=== PATIENT | male | born 1940 | race Caucasian/White ===

== ENCOUNTER 2018-09-06 15:07 | Inpatient (IN) | payer MEDICARE ==
[~2018-09-06] VITALS: Ht 175.3 cm; Wt 98.0 kg
--- NOTE | 2018-09-06 15:28 | PHYS DOC ---
Past History Past Medical History: Diabetes, Hypertension Additional Past Medical Histor: chronic pain Adult General Chief Complaint Chief Complaint: ALTERED MENTAL STATUS HPI HPI Patient is a 77 year old male who brought in by EMS because of altered level of consciousness. Patient stated she saw him around 1300 before she left home before going to the doctor appointment and when she returned home found him leaning on his chair with altered level of consciousness and called 911. EMS reported patient was arousable but lethargic with GCS of 14. Patient had a flu shot yesterday. Review of Systems Review of Systems Unable to call pain review of systems because of medical condition and She Physical Exam Physical Exam Constitutional: Well nourished, mild distress, non-toxic appearance somnolent, febrile with temperature of 10 2] HENT: Normocephalic, atraumatic, oropharynx dry, no oral exudates, nose normal. [] Eyes: PERRLA, EOMI, conjunctiva normal, no discharge. [] Neck: Normal range of motion, no tenderness, supple, no stridor. [] Cardiovascular:Heart rate regular rhythm, no murmur [] Lungs & Thorax: Bilateral breath sounds clear to auscultation [] Abdomen: Bowel sounds normal, soft, no tenderness, no masses, no pulsatile masses. [] Skin: Warm, dry, no erythema, no rash. [] Back: No tenderness, no CVA tenderness. [] Extremities: No tenderness, no cyanosis, no clubbing, ROM intact, no edema. [] Neurologic: Alert and oriented X 1, patient has chronic shoulder surgery and pain and hesitates to move his extremities, unable to get NIH because of lethargic and not following the commands, speech is normal Psychologic: Unable to evaluate EKG EKG EKG Rated by me. EKG at 1528 showed normal sinus rhythm at rate of 82, prolonged GA interval at 256, abnormal right axis deviation, right bundle branch block, nonspecific ST and T-wave abnormalities, no acute ST and T-wave abnormalities. Radiology/Procedures Radiology/Procedures [address] [address] IMAGING REPORT Signed PATIENT: TERRY PERES ACCOUNT: [id number] : 1940 LOCATION: ER AGE: 77 SEX: M EXAM STATUS: REG ER ORD. PHYSICIAN: MARYA MACE MD REASON: ALOC PROCEDURE: CT CODE STROKE HEAD WO CT CODE STROKE HEAD WO History: Found unresponsive, vomiting, loss of control of bowel in urine, altered level of consciousness Comparison: None. Technique: Noncontrast CT imaging was performed of the head. Exposure: One or more of the following individualized dose reduction techniques were utilized for this examination: 1. Automated exposure control 2. Adjustment of the mA and/or kV according to patient size 3. Use of iterative reconstruction technique. Findings: There is some motion degradation. No convincing acute intracranial hemorrhage is identified. There is a focus of relative lower density of the left occipital lobe. There is mild third and lateral ventriculomegaly although component of mild supratentorial involutional change. There is some calcification along the tentorium and falx. There is no significant midline shift. Visualized paranasal sinuses and mastoid air cells are aerated. Impression: 1. No convincing acute intracranial hemorrhage is identified allowing for motion degradation. There is a focus of relative lower density of the left occipital lobe difficult to characterize although focus of more recent subacute ischemia a consideration, more accurately characterized by MRI. FOR INTERNAL CODING PURPOSES Critical result: Findings discussed with MARYA MACE at 09/06/2018 3:32 PM. RESULT CODE: (C) [address] [address] IMAGING REPORT Signed PATIENT: TERRY PERES ACCOUNT: [id number] : 1940 LOCATION: ER AGE: 77 SEX: M EXAM STATUS: REG ER ORD. PHYSICIAN: MARYA MACE MD REASON: ALOC PROCEDURE: PORTABLE CHEST 1V PORTABLE CHEST 1V History: Altered level of consciousness Comparison: None. Findings: Single view of the chest is submitted. There are low lung volumes, suboptimal inspiration. There has been a median sternotomy. There is a tortuous, possibly ectatic thoracic aorta. Cardiac silhouette is within normal limits given technique and poor inspiration. There is no pneumothorax, significant pleural fluid, lobar infiltrate. Impression: 1. No convincing acute radiographic abnormality is identified, suboptimal inspiration. Electronically signed by: Johan Miller MD (09/06/2018 4:17 PM) [facility] DICTATED AND SIGNED BY: JOHAN MILLER MD DATE: 09/06/181616 CC: MARYA MACE MD; DIMITRI DEL CID ~ Course & Med Decision Making Course & Med Decision Making Pertinent Labs and Imaging studies reviewed. (See chart for details) evaluation of patient in ER showed 77-year-old male patient brought in by EMS for altered level of consciousness with code stroke activation. CT of head did not show acute bleeding at was concern for possible subacute ischemic changes but patient had a fever of 102 and history of recent flu shot concern of altered level of consciousness related to too much pain medication and fever. Patient did not have leukocytosis or hypotension or tachycardia. Patient was somnolent and treated with IV fluid and antibiotic. Dr. Solorzano accepted admission at 1603. Dragon Disclaimer Dragon Disclaimer This electronic medical record was generated, in whole or in part, using a voice recognition dictation system. Departure Departure: Impression: Primary Impression: Altered level of consciousness Additional Impressions: Fever Renal insufficiency Uncontrolled diabetes mellitus Disposition: 09 ADMITTED INPATIENT (at 1604) Admitting Physician: Telly Solorzano (accepted admission at 1603) Condition: GUARDED Critical Care Time Critical care time was 60 minutes exclusive of procedures. Problem Qualifiers MARYA MACE MD Sep 06, 2018 15:28
[2018-09-06] MEDS ORDERED: IV NORMAL SALINE 1,000ML 1,000 ML IV ONE (15:30)
[2018-09-06] MEDS ORDERED: NALOXONE 0.4 MG/ML VIAL. IV ONE (15:30)
--- NOTE | 2018-09-06 15:31 | EKG ---
[address] [address] Test Date: 2018-09-06 Test Time: 15:28:32 Pat Name: TERRY PERES Department: Room: Gender: M Dean Of Instruction: : 1940 Requested By: MARYA MACE Order Number: [id number] Reading MD: Momo Bowling MD Measurements Intervals [place] Rate: 82 P: 54 NV: 256 QRS: 137 QRSD: 142 T: 35 QT: 376 QTc: 442 Interpretive Statements SINUS RHYTHM PROLONGED NV INTERVAL RBBB NON-SPECIFIC ST/T CHANGES Electronically Signed On 09-08-2018 9:24:55 SCREEDMAN/LABORER by Momo Bowling MD
--- NOTE | 2018-09-06 15:37 | RAD ---
CT CODE STROKE HEAD WO History: Found unresponsive, vomiting, loss of control of bowel in urine, altered level of consciousness Comparison: None. Technique: Noncontrast CT imaging was performed of the head. Exposure: One or more of the following individualized dose reduction techniques were utilized for this examination: 1. Automated exposure control 2. Adjustment of the mA and/or kV according to patient size 3. Use of iterative reconstruction technique. Findings: There is some motion degradation. No convincing acute intracranial hemorrhage is identified. There is a focus of relative lower density of the left occipital lobe. There is mild third and lateral ventriculomegaly although component of mild supratentorial involutional change. There is some calcification along the tentorium and falx. There is no significant midline shift. Visualized paranasal sinuses and mastoid air cells are aerated. Impression: 1. No convincing acute intracranial hemorrhage is identified allowing for motion degradation. There is a focus of relative lower density of the left occipital lobe difficult to characterize although focus of more recent subacute ischemia a consideration, more accurately characterized by MRI. FOR INTERNAL CODING PURPOSES Critical result: Findings discussed with MARYA MACE at 09/06/2018 3:32 PM. RESULT CODE: (C) . Electronically signed by: Sea Miller MD (09/06/2018 3:34 PM) [facility]
[2018-09-06] MEDS ORDERED: ACETAMINOPHEN 500 MG TABLET PO ONE (15:45)
[2018-09-06 15:48] LABS: BASO # 0.1 x10^3/uL (0.0-0.2); BASO % 1 % (0-3); EOS % 0 % (0-3); HEMATOCRIT 44.2 % (39.0-53.0); HEMOGLOBIN 14.9 g/dL (13.0-17.5); LYMPH # 0.3 x10^3/uL (1.0-4.8); LYMPH % 4 % (24-48); MEAN CORPUSCULAR HEMOGLOBIN 32 pg (25-35); MEAN CORPUSCULAR HGB CONC 34 g/dL (31-37); MEAN CORPUSCULAR VOLUME 95 fL (79-100); MONO # 0.5 x10^3/uL (0.0-1.1); MONO % 6 % (0-9); NEUT # 8.1 x10^3uL (1.8-7.7); NEUT % 90 % (31-73); PLATELET COUNT 138 x10^3/uL (140-400); RED BLOOD COUNT 4.67 x10^6/uL (4.30-5.70)
[2018-09-06 15:56] LABS: CLARITY,URINE CLEAR; COLOR,URINE YELLOW; GLUCOSE,URINE 250 mg/dL (NEG)
[2018-09-06 15:57] LABS: BACTERIA,URINE 0 /HPF (0-FEW); BILIRUBIN,URINE NEG (NEG); NITRITE,URINE NEG (NEG); SQUAMOUS EPITHELIAL CELL,UR OCC /LPF; UROBILINOGEN,URINE 0.2 mg/dL (0.2 mg/dL); WBC,URINE RARE /HPF (0-4)
[2018-09-06 16:04] LABS: ALBUMIN 3.7 g/dL (3.4-5.0); CALCIUM 9.2 mg/dL (8.5-10.1); CREATININE 1.5 mg/dL (0.7-1.3); GFR 45.5; POTASSIUM 3.9 mmol/L (3.5-5.1); TOTAL BILIRUBIN 0.5 mg/dL (0.2-1.0); TOTAL PROTEIN 7.3 g/dL (6.4-8.2)
[2018-09-06 16:06] LABS: INFLUENZA A PATIENT NEGATIVE (NEGATIVE); INFLUENZA B PATIENT NEGATIVE (NEGATIVE)
[2018-09-06] MEDS ORDERED: IV NORMAL SALINE 50ML 50 ML ONE (16:07)
[2018-09-06] MEDS ORDERED: cefTRIAXone SODIUM 1 GM VIAL IV ONE (16:07)
--- NOTE | 2018-09-06 16:21 | RAD ---
PORTABLE CHEST 1V History: Altered level of consciousness Comparison: None. Findings: Single view of the chest is submitted. There are low lung volumes, suboptimal inspiration. There has been a median sternotomy. There is a tortuous, possibly ectatic thoracic aorta. Cardiac silhouette is within normal limits given technique and poor inspiration. There is no pneumothorax, significant pleural fluid, lobar infiltrate. Impression: 1. No convincing acute radiographic abnormality is identified, suboptimal inspiration. Electronically signed by: Sea Miller MD (09/06/2018 4:17 PM) [facility]
[2018-09-06] MEDS ORDERED: AZITHROMYCIN 500 MG in IV NORMAL SALINE 250ML 250 ML IV ONE (18:30)
[2018-09-06] MEDS ORDERED: DEXTROSE 50% 25 GM / 50ML DISP.SYRIN. IV PRN (18:30)
[2018-09-06] MEDS ORDERED: SIMV40TA3 PO (18:37)
[2018-09-06] MEDS ORDERED: OXYC1TAB22 PO (18:37)
[2018-09-06] MEDS ORDERED: LOSA25TA11 PO (18:37)
[2018-09-06] MEDS ORDERED: LEVO175T5 PO (18:37)
[2018-09-06] MEDS ORDERED: FURO40TA4 PO (18:37)
[2018-09-06] MEDS ORDERED: METO50TA29 PO (18:37)
[2018-09-06] MEDS ORDERED: MORP60TA PO (18:40)
[2018-09-06] MEDS ORDERED: CELE200C PO (18:40)
[2018-09-06] MEDS ORDERED: DUTA0.5C PO (18:40)
[2018-09-06 18:42] VITALS: BP 143/78
[2018-09-06 19:45] VITALS: BP 135/75
[2018-09-06] MEDS: IV NORMAL SALINE 1,000ML 1,000 ML IV SCH (19:46)
[2018-09-06] MEDS: oxyCODONE/APAP 10/325 1 TAB TABLET PO SCH (20:58)
[2018-09-06] MEDS: MORPHINE ER 30 MG TABLET.ER PO SCH (20:58)
[2018-09-06] MEDS: LACTOBACILLUS RHAMNOSUS GG 1 CAPSULE. PO SCH (20:58)
[2018-09-06 23:33] VITALS: BP 118/70
[2018-09-07] MEDS ORDERED: ONDANSETRON ODT 4 MG TAB.RAPDIS PO PRN (03:30)
[2018-09-07] MEDS ORDERED: oxyCODONE/APAP 10/325 1 TAB TABLET PO ONE (04:00)
[2018-09-07] MEDS: IV NORMAL SALINE 1,000ML 1,000 ML IV SCH ×4 (04:16→20:18)
[2018-09-07 05:00] VITALS: BP 159/77
[2018-09-07] MEDS ORDERED: ONDANSETRON PF 4 MG/2 ML VIAL. IV PRN (05:00)
[2018-09-07] MEDS: METOCLOPRAMIDE HCL 10 MG/2 ML VIAL. IV SCH ×4 (05:18→20:17)
[2018-09-07 06:35] LABS: BASO % 0 % (0-3); EOS % 0 % (0-3); HEMATOCRIT 40.1 % (39.0-53.0); HEMOGLOBIN 13.6 g/dL (13.0-17.5); LYMPH # 0.7 x10^3/uL (1.0-4.8); LYMPH % 5 % (24-48); MEAN CORPUSCULAR HEMOGLOBIN 32 pg (25-35); MEAN CORPUSCULAR HGB CONC 34 g/dL (31-37); MEAN CORPUSCULAR VOLUME 94 fL (79-100); MONO # 1.4 x10^3/uL (0.0-1.1); MONO % 9 % (0-9); NEUT # 13.5 x10^3uL (1.8-7.7); NEUT % 87 % (31-73); PLATELET COUNT 132 x10^3/uL (140-400); RED BLOOD COUNT 4.27 x10^6/uL (4.30-5.70); RED CELL DISTRIBUTION WIDTH 15.2 % (11.5-14.5); WHITE BLOOD COUNT 15.6 x10^3/uL (4.0-11.0)
[2018-09-07 06:48] LABS: ALBUMIN 2.8 g/dL (3.4-5.0); ALBUMIN/GLOBULIN RATIO 0.8 (1.0-1.7); CALCIUM 8.5 mg/dL (8.5-10.1); CREATININE 1.3 mg/dL (0.7-1.3); GFR 53.7; POTASSIUM 3.5 mmol/L (3.5-5.1); TOTAL BILIRUBIN 0.6 mg/dL (0.2-1.0); TOTAL PROTEIN 6.1 g/dL (6.4-8.2)
[2018-09-07 06:49] LABS: LACTATE DEHYDROGENASE 175 U/L (85-227); LIPASE 91 U/L (73-393)
[2018-09-07 07:38] LABS: % BANDS 12 % (0-9); % LYMPHS 3 % (24-48); % MONOS 6 % (0-10); % SEGS 76 % (35-66)
[2018-09-07 07:40] LABS: PLT ESTIMATE DECREASED (ADEQUATE); SMUDGE CELLS PRESENT; TOXIC GRANULATION PRESENT
[2018-09-07] MEDS: LEVOTHYROXINE 175 MCG TABLET PO SCH (07:47)
[2018-09-07] MEDS: METOPROLOL SUCC 24HR ER 50 MG TAB.ER.24H. PO SCH (08:59)
[2018-09-07] MEDS: SIMVASTATIN 40 MG TABLET. PO SCH (08:59)
[2018-09-07] MEDS: DUTASTERIDE 0.5 MG CAPSULE PO SCH (08:59)
[2018-09-07] MEDS: oxyCODONE/APAP 10/325 1 TAB TABLET PO SCH ×4 (08:59→20:18)
[2018-09-07] MEDS: LACTOBACILLUS RHAMNOSUS GG 1 CAPSULE. PO SCH ×2 (08:59→20:17)
[2018-09-07] MEDS: MORPHINE ER 30 MG TABLET.ER PO SCH ×2 (09:00→20:17)
[2018-09-07] MEDS: INSULIN LISPRO 300 UNITS/3 ML INSULN.PEN. SQ SCH ×3 (09:07→16:56)
[2018-09-07 11:09] VITALS: BP 159/69
[2018-09-07] MEDS ORDERED: ACETAMINOPHEN 325 MG TABLET PO PRN (14:15)
[2018-09-07] MEDS ORDERED: ACETAMINOPHEN 650 MG SUPP.RECT. PR PRN (14:15)
--- NOTE | 2018-09-07 15:04 | HP ---
ADMIT DATE: 09/06/2018 HISTORY OF PRESENT ILLNESS: The patient is a 77-year-old male patient who was brought to the Emergency Room by the emergency medical service personnel because of altered mental level of consciousness. His stated that he saw him around 1:00 before she left the home before going to the doctor's appointment when he returned home, she found him leaning on the chair with altered level of consciousness. She called 911. Emergency medical service reported the patient was arousable, but lethargic; however, his glaucoma scale was 14. He did just receive his flu shot the day before admission. He was evaluated in the Emergency Room extensively and he was found to be febrile. His temperature was on arrival was actually 102.6, however, chest x-ray was unremarkable. Urinalysis unremarkable. He has bilateral lower extremity cellulitis and he has left foot diabetic foot ulcer with Charcot joint. He was admitted with altered mental status, febrile illness. The source of infection was not clear. He was also somewhat dehydrated, so we will start him on IV fluid. His blood sugar was slightly elevated, but he was not hypoglycemic and his blood was sent for culture and sensitivity. His CT scan of the head was unremarkable and showed no convincing acute intracranial hemorrhage identified allowing for motor degradation. PAST MEDICAL HISTORY: Significant for benign prostatic hypertrophy, hypothyroidism, hypogonadism, neurofibromatosis, type 2 diabetes, chronic fatigue syndrome, neck pain, lumbago, depression, chronic pain, chronic renal insufficiency, erectile dysfunction and nocturia. PAST SURGICAL HISTORY: Significant for thoracic aortic aneurysm repair. He has also shoulder surgery and hand surgery. FAMILY HISTORY: Both parents are . SOCIAL HISTORY: He is , lives with his . He has 1 son who was in the law enforcement agency at another state. He apparently does not smoke, drink alcohol or use any recreational drugs. ALLERGIES: HE IS ALLERGIC TO PENICILLIN. MEDICATIONS: He is currently on following medications: He is on simvastatin 40 mg at bedtime daily at bedtime, metoprolol succinate 50 mg once a day, losartan potassium 25 mg once a day, Celebrex 200 mg twice a day, morphine sulfate 60 mg extended release twice a day, oxycodone/APAP 10/325 one tablet 4 times a day. He is on furosemide 40 mg once a day, levothyroxine sodium 175 mcg once a day and (Dutasteride) Avodart 0.5 mg at bedtime. REVIEW OF SYSTEMS: The patient was very angry and did not really answer any of my questions when I saw him the first time. PHYSICAL EXAMINATION: GENERAL: On examining him, on arrival to the Emergency Room, he looked somewhat pale, but no jaundice or cyanosis. No lymphadenopathy, no thyromegaly. No jugular venous distention. No limb edema. VITAL SIGNS: His heart rate was 87, blood pressure was 169/73, temperature was 102.6, respiratory rate was 20, and oxygen saturation was 96% on room air. HEAD, EYES, EARS, NOSE AND THROAT: Showed normocephalic, atraumatic. NECK: Supple. HEART: Showed normal first and second heart sounds. No gallop, rub or murmur. CHEST: Shows central trachea, equal bilateral chest expansion, air entry, vesicular sounds. No crepitation or rhonchi. ABDOMEN: Slightly distended, soft, but this seems to be an incisional hernia in the epigastric area. There is no tenderness. No guarding or rigidity. No organomegaly. All hernial orifice intact. Bowel sounds normal. NEUROLOGIC: He was sleepy, but arousable. He opens his eyes, responds appropriately. He moves his upper extremities to a greater extent than his lower extremities. According to his , he is mostly bed bound. He has diabetic foot ulcer on the plantar aspect of the left foot with diabetic autonomic arthropathy and the ulcer is covered with dressing. There is erythema bilaterally, although the and sister saying that his legs are always swollen and red. He has a scar of harvesting the greater saphenous vein on the left side. LABORATORY DATA: His lab work on arrival showed that his serum sodium was 134, potassium 3.9, chloride 98, bicarbonate 26, anion gap of 10, BUN 29, creatinine 1.5, estimated GFR was 45 mL per minute. His glucose was 122, calcium was 9.2. Total bilirubin, AST, ALT, alkaline phosphatase were normal. Total protein was 7.3, albumin 3.7. His white cell count was 9000, hemoglobin 14.9, hematocrit 44, MCV 95, and platelet count of 138,000 with normal manual differential. His prothrombin time was 10.5, INR 1.1, aPTT was 38. Urinalysis showed the urine was yellow, clear with a pH of 5.5, specific gravity of 1.020. There was large amount of glucose, small amount of ketones, moderate amount of blood, negative for nitrite and leukocyte esterase with 6-10 rbc's, rare wbc's, and no bacteria. His influenza A and B were negative. His CT scan of the head showed that there is a focus of relative lower density on the left occipital lobe, difficult to characterize, although focus of more recent subacute ischemia, consideration, more accurately characterized by MRI. However, there is no convincing acute intracranial hemorrhage identified. His chest x-ray showed there are low lung volumes, suboptimal inspiration. There has been a median sternotomy. There is a tortuous, possibly ectatic thoracic aorta. Cardiac silhouette is within normal limits given technique and poor inspiration. There is no pneumothorax. Significant pleural effusion or lobar infiltrate. ASSESSMENT AND PLAN: The patient was admitted with fever and altered mental status, possible cellulitis. We sent blood for culture and sensitivity. Initially was started on IV Rocephin and Zithromax as well as IV fluid because he was very lethargic. We will continue with this IV antibiotics. Continue with IV fluid, await the culture result. I have consulted Dr. Mata to see him and I have contacted his primary care physician to hopefully get more information about him. ABDOULAYE ENRIQUEZ MD DR: MONIE/palmer JOB#: [id number] / [id number]
--- NOTE | 2018-09-07 16:43 | RAD ---
History: Diabetic foot ulcer and possible osteomyelitis. Comparison: None. Findings: AP, lateral, and oblique views of left foot. Osseous structures appear demineralized. There is suspected to be Charcot arthropathy with sclerosis and arthritic changes of the midfoot. The TMT joints are not well delineated. No convincing osteolysis to suggest radiographic evidence of osteomyelitis is identified, although radiographic evidence of such would be a late finding. 1st MTP degeneration is seen. Multiple small calcifications are seen in the posterior ankle, may relate to the Achilles tendon. Impression: 1. No radiographic evidence of osteomyelitis, although ultrasound evidence of such would be a relatively late finding. 2. Probable Charcot arthropathy. Electronically signed by: Rikki Dickinson MD (09/07/2018 4:40 PM) [facility] [address] [facility]
--- NOTE | 2018-09-07 16:53 | RAD ---
Indication:Recurrent bouts of nausea and vomiting. TECHNIQUE: Grayscale, color Doppler and spectral waveform is of the abdomen obtained. COMPARISON:None FINDINGS: Pancreas is not visualized due to overlying bowel gas. No evidence of proximal or mid aortic aneurysm. Distal aortic segment not visualized due to overlying bowel gas. Liver is mildly enlarged measuring 19 cm in length and is normal in echogenicity. IVC is patent. Main portal vein is patent with hepatopedal flow. CBD measures 6 mm in diameter and is within normal limits. No gallstones, pericholecystic fluid or gallbladder wall thickening. Right kidney measures 12.4 cm in length without hydronephrosis. There is a 3.6 x 3.9 cm complex appearing lesion in the upper pole of the right kidney without internal vascularity. The spleen measures 12 cm in longest dimension and is poorly visualized but is normal in size. Left kidney is poorly visualized but approximately measures 11.3 cm in length. There is a 4.3 x 4.6 x 4.5 cm simple appearing cyst in the left kidney. IMPRESSION: Limited exam due to large body habitus and overlying bowel gas. 1. Mild hepatomegaly with mild hepatic steatosis. 2. No cholelithiasis or sonographic evidence of acute cholecystitis. 3. Complex right upper pole renal lesion. Further evaluation with nonemergent MRI of the abdomen with IV contrast is recommended. . Electronically signed by: Ranjan Minor DO (09/07/2018 4:49 PM) [id number]
[2018-09-07 21:00] VITALS: BP 136/68
[2018-09-07] MEDS: MEROPENEM 500 MG in IV NORMAL SALINE 50ML 50 ML IV SCH (22:16)
[2018-09-08] VITALS (7 sets, daily range): BP systolic 143–173; BP diastolic 67–95
--- NOTE | 2018-09-08 00:18 | PN ---
DATE: 09/07/2018 SUBJECTIVE: The patient is resting, slightly propped up in bed, in no apparent distress. He is definitely more awake, alert, less combative and agitated. His main complaint has been recurrent bouts of nausea and vomiting. Denied any abdominal pain. Denied any chest pain, shortness of breath. He has not had eat breakfast and keeps any fluid in. He has large bowel movement according to the nursing staff. However, today he is afebrile. PHYSICAL EXAMINATION: GENERAL: When I examined him, he was somewhat pale, not jaundice, cyanosis, or thyromegaly. No jugular venous distension. Has bilateral lower limb edema. VITAL SIGNS: His heart rate was 73, blood pressure was 159/69, temperature was 98.5, respiratory rate was 20, and oxygen saturation was 95% on room air. HEAD, EYES, EARS, NOSE AND THROAT: Showed normocephalic, atraumatic. NECK: Supple. HEART: Showed normal first and second heart sounds. No gallop, rub or murmur. CHEST: Clear to auscultation. No crepitation or rhonchi. ABDOMEN: Distended, soft with a large incisional hernia in the epigastric area. There is no tenderness. No guarding or rigidity. No organomegaly. All hernial orifice intact. Bowel sounds normal. NEUROLOGIC: He is definitely more awake, alert, responding appropriately, less agitated, calmer, responding appropriately. All his cranial nerves are intact. He moves his upper extremities to much good extent than lower extremities. He has apparently neurofibromatosis with right hand that is extremely painful. 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 His intake over the last 24 hours was 2700 and output was 400. LABORATORY DATA: His lab work this morning showed that his white cell count is up to 15,600, hemoglobin 13.6, hematocrit 40, MCV 94 and platelet count of 132,000 with normal manual differential. His chemistry showed his serum sodium is 134, potassium 3.9, chloride 101, bicarbonate 24, anion gap of 12, BUN 25, creatinine 1.3, estimated GFR was 54 mL per minute. His glucose was 225, calcium was 8.5. Total bilirubin, AST, ALT were normal. Alkaline phosphatase was low. His lactate dehydrogenase was 175. Total protein 6.1, albumin was 2.8 and lipase was 91. Again, his chest x-ray was unremarkable. ASSESSMENT: Altered mental status, improving; fever, leukocytosis and bilateral lower extremity cellulitis as well as has possible diabetic foot ulcer with possible osteomyelitis. PLAN: My plan is to arrange for him to have abdominal ultrasound to look into his gallbladder, as he has persistent nausea, vomiting, although my inclination is that this is an opioid-induced nausea and vomiting. Cellulitis and possible osteomyelitis, which I would change her antibiotic to Zyvox and meropenem, as he is allergic to PENICILLIN. Continue with IV fluid for now. We will continue with a low dose sliding scale. Await the results of culture and sensitivity. I have arranged for him to have abdominal ultrasound as well as x-ray of the left foot. I will arrange also the CT scan of the abdomen if the ultrasound was uninformative and also bone scan to rule out the possibility of osteomyelitis of his left foot. ABDOULAYE ENRIQUEZ MD DR: MONIE/palmer JOB#: [id number] / [id number]
[2018-09-08] MEDS: IV NORMAL SALINE 1,000ML 1,000 ML IV SCH ×2 (05:21→17:01)
[2018-09-08] MEDS: MEROPENEM 500 MG in IV NORMAL SALINE 50ML 50 ML IV SCH ×3 (05:21→22:12)
[2018-09-08] MEDS: oxyCODONE/APAP 10/325 1 TAB TABLET PO SCH ×4 (05:22→21:01)
[2018-09-08] MEDS: LEVOTHYROXINE 175 MCG TABLET PO SCH (05:22)
[2018-09-08 05:56] LABS: BASO # 0.1 x10^3/uL (0.0-0.2); BASO % 0 % (0-3); EOS % 0 % (0-3); HEMOGLOBIN 12.7 g/dL (13.0-17.5); LYMPH # 1.1 x10^3/uL (1.0-4.8); LYMPH % 7 % (24-48); MEAN CORPUSCULAR HEMOGLOBIN 32 pg (25-35); MEAN CORPUSCULAR HGB CONC 33 g/dL (31-37); MEAN CORPUSCULAR VOLUME 97 fL (79-100); MONO # 1.7 x10^3/uL (0.0-1.1); MONO % 10 % (0-9); NEUT # 13.4 x10^3uL (1.8-7.7); NEUT % 82 % (31-73); PLATELET COUNT 114 x10^3/uL (140-400); RED BLOOD COUNT 4.03 x10^6/uL (4.30-5.70); WHITE BLOOD COUNT 16.2 x10^3/uL (4.0-11.0)
[2018-09-08 06:08] LABS: ALBUMIN 2.4 g/dL (3.4-5.0); ALBUMIN/GLOBULIN RATIO 0.7 (1.0-1.7); CALCIUM 7.8 mg/dL (8.5-10.1); CREATININE 1.5 mg/dL (0.7-1.3); GFR 45.5; POTASSIUM 3.8 mmol/L (3.5-5.1); TOTAL BILIRUBIN 0.6 mg/dL (0.2-1.0); TOTAL PROTEIN 5.8 g/dL (6.4-8.2)
--- NOTE | 2018-09-08 06:53 | PN ---
DATE: 09/07/2018 REFERRING PHYSICIAN: Telly Solorzano MD SUBJECTIVE: The patient is more awake this morning and he answers question correctly and he was cooperative. He complains of chronic pain syndrome and pain of the right hand. The patient told me many years ago he underwent extensive surgery to the right hand and forearm to schwannoma. Currently, he denies headaches, visual disturbances, nausea, vomiting, chest pain, shortness of breath or palpitation, dysarthria or dysphagia. OBJECTIVE: GENERAL: Well-developed, well-nourished male, not in acute distress. VITAL SIGNS: Blood pressure 159/77, respiratory rate 22, pulse is 78 and regular, temperature is 98, oxygen saturation 95% on room air. HEENT: Normocephalic, atraumatic, otherwise unremarkable. NECK: Supple, negative for carotid bruit, lymphadenopathy or thyromegaly. LUNGS: Clear to A and P. CARDIOVASCULAR: Regular rhythm, normal S1, S2. ABDOMEN: Soft. Bowel sounds positive. EXTREMITIES: Positive for swelling and cellulitis, more prominent on the left side. Also, he has deformity of the right hand secondary to previously extensive surgeries. NEUROLOGIC: The patient is awake, alert, and oriented. His speech is fluent. There is no language dysfunction. Speech, memory, judgment, and abstract thinking are fair. The patient denies hallucination or delusion. Cranial nerves are grossly intact. Motor Examination: No focal muscle bulk was seen. The strength was 4/5 throughout. Sensory examination revealed diminished pinprick and light touch senses in patchy distributions in both lower extremities. Deep tendon reflexes were symmetric and hypoactive with absent Achilles responses. Gait not tested. LABORATORY DATA: CBC revealed white blood cells of 15.6, hemoglobin 13.6, hematocrit 40.1, platelet count 133,000. Chemistry revealed sodium of 137, potassium 3.5, chloride 101, CO2 24, BUN 25, creatinine 1.3, glucose 223. CRP is very high at 229.9. Otherwise, liver enzymes are normal. Urinalysis from 09/06/2016 revealed no evidence of urinary tract infection. IMPRESSION: 1. Acute encephalopathy -- improved. 2. Febrile illnesses, rule out sepsis. 3. Multiple medical problems include diabetes mellitus type 2, chronic fatigue and pain syndrome, depressions, chronic low back pain and renal insufficiency. RECOMMENDATIONS: 1. Continue with current management initiated by Dr. Solorzano to rule out an infectious versus metabolic encephalopathy. 2. Treat the underlying cellulitis. 3. Physical therapy evaluation. M Taylor LOAIZA MD DR: SVETLANA/palmer JOB#: [id number] / [id number]
[2018-09-08 06:59] LABS: SEDIMENTATION RATE 37 (0-15)
--- NOTE | 2018-09-08 07:17 | CONS ---
DATE OF CONSULTATION: 09/06/2018 REFERRING PHYSICIAN: Dr. Solorzano. REASON FOR CONSULTATION: Acute mental status changes. HISTORY OF PRESENT ILLNESS: This is a 77-year-old right-handed male who was admitted through Emergency Room after he was found by his confused and disoriented. 911 was activated and transferred the patient to the Emergency Room. On arrival, the patient was found unresponsive to verbal commands with a temperature of 102.6. The coma scale was 14 according to ER physicians. Initial nonenhanced head CT scan revealed no evidence of acute intracranial process. The patient was admitted for further evaluation for possible systemic infections. PAST MEDICAL HISTORY: Significant for diabetes mellitus type 2, hypogonadism, hypothyroidism, benign prostatic hypertrophy, depression, chronic lower back pain, renal insufficiency and neck pain. PAST SURGICAL HISTORY: Positive for thoracic aortic aneurysm repair and extensive surgery for right hand and shoulder. When asked about the hand surgery, it was told the patient had a long history of schwannoma of the right hand which required extensive surgery. SOCIAL HISTORY: The patient is . He lives with his at home. He has 1 son. There is no history of smoking, alcohol drinking, or illicit drug use. ALLERGIES: PENICILLIN. REVIEW OF SYSTEMS: A 10-point review of system was performed and consistent with acute mental status changes as mentioned above in the history of present illness. CURRENT HOME MEDICATIONS: Simvastatin, metoprolol, losartan, potassium, Celebrex, morphine, oxycodone, furosemide, levothyroxine, and Avodart. PHYSICAL EXAMINATION: GENERAL: He weighs 217 pounds. VITAL SIGNS: Blood pressure 135/75, respiratory rate 20, pulse 76, temperature 99, oxygen saturation 95% on room air. HEENT: Normocephalic and atraumatic, otherwise unremarkable. NECK: Supple, negative for carotid bruit, lymphadenopathy or thyromegaly. LUNGS: Clear to A and P. CARDIOVASCULAR: Regular rate and rhythm. Normal S1, S2. No murmur. ABDOMEN: Soft. Bowel sounds positive. There is no mass, organomegaly or tenderness. EXTREMITIES: Positive for left foot ulcer along with erythema of the distal lower extremity with discoloration. There is marked deformity of the right hand secondary to previous surgeries. NEUROLOGIC: 1. Mental Status: The patient is markedly somnolent, unable to provide any information at this time. 2. Cranial Nerves: The pupils are equal and reactive to light. There is no facial motor deficit. Further evaluation is limited at this time. 3. Motor Examination: No focal muscle bulk was seen. The patient is drowsy and cannot communicate with manual muscle examination. 4. Sensory Examination: Revealed diminished pinprick and light touch senses throughout. Deep tendon reflexes were symmetric and hypoactive with absent Achilles responses. Gait could not be tested. LABORATORY DATA: CBC revealed white blood cells of 9000, hemoglobin 14.9, hematocrit 44.2, platelet count 138,000. Chemistry revealed sodium of 134, potassium 3.9, chloride 98, pCO2 of 26, BUN 29, creatinine 1.5 with GFR of 45 mL per minute, calcium 9.2, glucose of 122. Urinalysis, negative for urinary tract infection. Chest x-ray revealed no aspiration, otherwise unremarkable. IMPRESSION: 1. Acute encephalopathy, etiology is uncertain. However, the patient did receive flu shot one day before admission. The etiology of his mental status is uncertain, to rule out systemic infections as the patient has cellulitis of the lower extremities mostly on the left side. 2. Multiple medical problems to include diabetes mellitus, chronic pain syndrome, chronic back pain, depression, hypothyroidism, and hypogonadism. RECOMMENDATIONS: Continue with current management initiated by Dr. Solorzano including a workup for possible sepsis. M Taylor LOAIZA MD DR: SVETLANA/palmer JOB#: [id number] / [id number]
[2018-09-08] MEDS: DUTASTERIDE 0.5 MG CAPSULE PO SCH (09:43)
[2018-09-08] MEDS: MORPHINE ER 30 MG TABLET.ER PO SCH ×2 (09:43→21:00)
[2018-09-08] MEDS: LACTOBACILLUS RHAMNOSUS GG 1 CAPSULE. PO SCH ×2 (09:44→20:59)
[2018-09-08] MEDS: SIMVASTATIN 40 MG TABLET. PO SCH (09:44)
[2018-09-08] MEDS: METOCLOPRAMIDE HCL 10 MG/2 ML VIAL. IV SCH ×4 (09:44→21:01)
[2018-09-08] MEDS: METOPROLOL SUCC 24HR ER 50 MG TAB.ER.24H. PO SCH (09:44)
[2018-09-08] MEDS: INSULIN LISPRO 300 UNITS/3 ML INSULN.PEN. SQ SCH ×3 (09:49→17:07)
--- NOTE | 2018-09-08 10:37 | RAD ---
PQRS Compliance statement: One or more of the following individualized dose reduction techniques were utilized for this examination: 1. Automated exposure control. 2. Adjustment of the mA and/or kV according to patient size. 3. Use of iterative reconstruction technique. Indication:RECURRENT BOUTS OF nausea and vomiting TECHNIQUE: CT abdomen and pelvis without IV contrast with multiplanar reformats. COMPARISON: None FINDINGS: Motion artifact is seen limiting optimal evaluation. Limited evaluation of solid abdominal and pelvic organs due to lack of IV contrast. Heart is normal in size. No pericardial or effusion. Median sternotomy noted. Bibasilar atelectasis. Noncontrast appearance of the liver, spleen, gallbladder, pancreas, adrenals within normal limits. Multiple bilateral partially exophytic lesions are seen in the kidneys. Index lesions as follows: 4.4 x 4.1 cm lesion interpolar right kidney demonstrating fluid density most likely a simple cyst. Exophytic 1.3 x 0.9 cm soft tissue density lesion in the posterior aspect of the interpolar right kidney (series 2 image 27). 2.1 x 2.3 cm low attenuating lesion with eccentric focal wall calcifications. -3.4 x 2.6 cm low attenuating lesion in the medial aspect of the upper pole of the left kidney with thick eccentric wall (series 2 image 34) -Most likely a simple cyst in the inferior pole of the left kidney measuring 5.1 x 4.0 cm. No enlarged retroperitoneal or pelvic adenopathy. No free pelvic fluid or ascites. Moderate diffuse atherosclerotic calcifications are seen of the abdominal aorta. No bowel obstruction. Normal appendix. Large amount of stool is seen in the rectum. Anterior abdominal wall hernia is seen containing focal loop of small bowel with neck of the hernia measuring 3 cm. Prostate is enlarged measuring 6.0 x 4.5 cm. Urinary bladder demonstrates no radiopaque stones. Prominent and mildly enlarged bilateral inguinal lymph nodes are seen, the largest in the left inguinal region measuring 1.7 x 1.3 cm. No pneumoperitoneum or pneumatosis intestinalis. Most likely old healed fracture deformity in the right iliac bone. Mild dextroscoliosis of the lower thoracic spine with multilevel degenerative disc disease. IMPRESSION: Limited evaluation of solid abdominal and pelvic organs due to lack of IV contrast. 1. Multiple bilateral renal lesions some of them are compatible with simple cysts, some of them are indeterminate and may be minimally complicated cysts. Although renal cell carcinoma is not ruled out. If clinical conditions allow MRI of the abdomen with IV contrast is recommended. Alternatively nonemergent ultrasound of the renal recommended. 2. Anterior abdominal wall hernia containing loop of small bowel without evidence of bowel obstruction. 3. Mildly enlarged prostate. Clinically correlate with physical exam and PSA. 4. Bilateral mildly enlarged inguinal lymph nodes, nonspecific most likely reactive. Electronically signed by: Ranjan Minor DO (09/08/2018 10:34 AM) [id number]
[2018-09-08] MEDS ORDERED: DEXTROSE 50% 25 GM / 50ML DISP.SYRIN. IV PRN (11:15)
--- NOTE | 2018-09-08 14:19 | PN ---
DATE: SUBJECTIVE: The patient denies any new medical or neurological complaints. OBJECTIVE: GENERAL: Well-developed, well-nourished male, not in acute distress. VITAL SIGNS: Blood pressure 159/76, respiratory rate 20, pulse is 68 and regular, temperature 97.9, oxygen saturation 95% on room air. HEENT: Normocephalic, atraumatic, otherwise unremarkable. NECK: Supple. Negative for carotid bruit, lymphadenopathy or thyromegaly. LUNGS: Clear to A and P. CARDIOVASCULAR: Regular rate and rhythm, normal S1, S2. There is no S3, S4 or murmur. ABDOMEN: Soft. Bowel sounds positive. EXTREMITIES: Positive for cellulitis, more prominent on the left side. NEUROLOGIC: Normal mental status and intact cranial nerves. There is no focal motor or sensory deficit. The strength was 4/5 throughout. Sensory examination revealed normal pinprick and light touch senses. Deep tendon reflexes were symmetric and hypoactive with absent Achilles responses. Gait: The patient uses a walker for ambulation. DIAGNOSTIC DATA: X-ray of the left foot revealed no evidence of osteomyelitis and a CT of the abdomen revealed evidence of right upper pole renal lesion, etiology uncertain. LABORATORY DATA: CBC revealed white blood cells of 16.2 thousand, hemoglobin 12.7, hematocrit 39, platelet count of 114,000. Chemistry revealed sodium 134, potassium 3.8, chloride 99, BUN 35, creatinine 1.5, and glucose 349. Urinalysis is negative for urinary tract infections. A blood culture on 09/06/2018 revealed gram-positive cocci. IMPRESSION: 1. No Acute encephalopathy -- improved. 2. Cellulitis of the lower extremities, more prominent on the left side with positive blood culture. 3. Abnormal abdominal ultrasound consistent with a right upper pole renal lesion, renal insufficiency/failure, thrombocytopenia, depressions, diabetes mellitus type 2. RECOMMENDATIONS: Continue with current management initiated by Dr. Solorzano. The patient is neurologically stable. M Taylor LOAIZA MD DR: SVETLANA/palmer JOB#: [id number] / [id number]
--- NOTE | 2018-09-08 15:18 | PN ---
DATE: 09/08/2018 SUBJECTIVE: The patient is a 77-year-old male patient who was admitted with altered mental status. He was also found to be febrile and has bilateral lower extremity cellulitis as well as diabetic foot ulcer with Charcot joint of his left ankle joint. We did start him on IV antibiotic and his blood culture has grown gram-positive cocci in chains suggestive of streptococcus 1-1/2 to 2 bottles. I did extensive imaging including CT scan, which was unremarkable. Chest x-ray, which showed no convincing acute radiographic abnormalities identified. His abdominal ultrasound showed he has hepatic steatosis with mild hepatomegaly and no cholelithiasis or sonographic evidence of acute cholecystitis. He has complex right upper pole of the renal lesions that requires further evaluation. X-ray of his left ankle joint showed that there is no radiographic evidence of osteomyelitis, although radiographic evidence of such would be relatively late finding and probably Charcot arthropathy. The CT scan of the abdomen and pelvis without contrast was mostly unremarkable except for multiple bilateral renal lesions, some of them are compatible with simple cyst. He has anterior abdominal wall hernia containing loops of small bowel without evidence of obstruction. He has mildly enlarged prostate and bilateral mildly enlarged inguinal lymph nodes, most likely reactive as he has infection in his both legs. PHYSICAL EXAMINATION: GENERAL: When I examined him this morning, he looked pale, but no jaundice or cyanosis. No lymphadenopathy, no thyromegaly. No jugular venous distension. No lower limb edema. VITAL SIGNS: His heart rate was 68, blood pressure was 159/76, temperature was 97.9, respiratory rate 20, and oxygen saturation was 95% on room air. HEAD, EYES, EARS, NOSE AND THROAT: Showed normocephalic, atraumatic. NECK: Supple. HEART: Showed normal first and second heart sounds with no gallop, rub or murmur. CHEST: Clear to auscultation. No crepitation or rhonchi. ABDOMEN: Distended, soft, nontender. No guarding or rigidity. No organomegaly. All hernial orifices are intact. Bowel sounds normal. NEUROLOGIC: He was awake, alert, responding appropriately. All his cranial nerves are intact. He moves his upper extremities to much good extent than lower extremities. Examination of both lower extremities showed he has Charcot joint of his left ankle joint with a diabetic foot ulcer on the plantar aspect of his first metatarsophalangeal joint. He has bilateral lower extremity erythema that is improving. His intake over the last 24 hours was 3350, output was 1050. LABORATORY DATA: This morning showed a serum sodium 134, potassium 3.8, chloride 99, bicarbonate 19, anion gap of 16, BUN 35, creatinine 1.5, estimated GFR was 45 mL per minute. His glucose was 326. Calcium was 7.8. Total bilirubin, AST, ALT, alkaline phosphatase were normal. His total protein was 5.8, albumin 2.4. His influenza A and B were negative. Urinalysis was essentially unremarkable. ASSESSMENT: 1. Altered mental status, improving. 2. Bilateral fever with leukocytosis and the growth of gram-positive cocci in chains. 3. Bilateral lower extremity cellulitis. 4. Diabetic foot ulcer. 5. 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 6. Neurofibromatosis with chronic pain due to that. 7. Type 2 diabetes mellitus. 8. Chronic renal failure. 9. Hypothyroidism. PLAN: My plan is to continue with IV fluid, IV antibiotic. Await the identification and sensitivity of his blood culture. I also ordered bone scan to make sure that there is no evidence of cellulitis and his sedimentation rate was 37 mm per hour and C-reactive protein was extremely high at 229.9 mg/dL. His blood sugar is suboptimally controlled, so I will increase his insulin sliding scale to high dose and start him also on a small dose of Lantus. ABDOULAYE ENRIQUEZ MD DR: MONIE/palmer JOB#: [id number] / [id number]
[2018-09-08] MEDS ORDERED: INSULIN GLARGINE 300 UNITS/3 ML INSULN.PEN. SQ SCH (21:00)
[2018-09-08] MEDS: HEPARIN PF for SUB-Q USE 5,000 UNIT/0.5 ML VIAL. SQ SCH (22:13)
[2018-09-08 23:13] LABS: HEMOGLOBIN A1C 8.7 % (4.8-5.6)
[2018-09-09] MEDS: IV NORMAL SALINE 1,000ML 1,000 ML IV SCH (04:13)
[2018-09-09] MEDS: oxyCODONE/APAP 10/325 1 TAB TABLET PO SCH ×2 (06:17→12:40)
[2018-09-09] MEDS: LEVOTHYROXINE 175 MCG TABLET PO SCH (06:18)
[2018-09-09] MEDS: HEPARIN PF for SUB-Q USE 5,000 UNIT/0.5 ML VIAL. SQ SCH ×2 (06:19→12:44)
[2018-09-09] MEDS: MEROPENEM 500 MG in IV NORMAL SALINE 50ML 50 ML IV SCH ×2 (06:19→12:30)
[2018-09-09 06:38] VITALS: BP 180/75
[2018-09-09] MEDS: METOCLOPRAMIDE HCL 10 MG/2 ML VIAL. IV SCH ×2 (07:30→12:33)
[2018-09-09] MEDS: DUTASTERIDE 0.5 MG CAPSULE PO SCH (09:04)
[2018-09-09] MEDS: SIMVASTATIN 40 MG TABLET. PO SCH (09:04)
[2018-09-09] MEDS: LACTOBACILLUS RHAMNOSUS GG 1 CAPSULE. PO SCH (09:04)
[2018-09-09] MEDS: METOPROLOL SUCC 24HR ER 50 MG TAB.ER.24H. PO SCH (09:04)
[2018-09-09] MEDS: MORPHINE ER 30 MG TABLET.ER PO SCH (09:04)
[2018-09-09] MEDS: INSULIN LISPRO 300 UNITS/3 ML INSULN.PEN. SQ SCH (09:10)
[2018-09-09 11:41] VITALS: BP 189/81
[2018-09-09 12:24] LABS: CALCIUM 7.5 mg/dL (8.5-10.1); CREATININE 1.5 mg/dL (0.7-1.3); GFR 45.5
--- NOTE | 2018-09-09 12:33 | RAD ---
BONE SCAN 3 PHASE History: Left foot ulcer, erythema for 3 years, diabetes, left Charcot joint. Comparison: September 07, 2018 left foot radiographs Findings: 3 phase bone scan was performed. 20.1 mCi of technetium 99m MDP were injected. On delayed images, there is increased radiotracer activity of the bilateral feet primarily of the hindfeet and the right midfoot. There is mild increased radiotracer activity at the plantar aspect of the mid left foot with corresponding increased radiotracer activity on blood flow and flow phases which would correspond with provided history of site of skin ulcer. It is possible there is involvement of the plantar surface of the medial cuneiform although cannot distinguish actual bone involvement on this exam due to low resolution. However on radiographs, there is not definitive aggressive bone destruction. There is prominent degenerative change of the first through third tarsometatarsal articulations. IMPRESSION: 1. There is increased activity on all 3 phases at the left plantar midfoot which could correspond with the site of skin ulcer, possible mild involvement of the plantar margin of the medial cuneiform (osteomyelitis) given the persistence of activity on delayed images. However significant bone destruction is not identified on radiographs. Bone involvement would be more definitively characterized with MRI. Other radiotracer activity of the bilateral feet on delayed images may be due to sequela of degenerative or neuropathic changes. Electronically signed by: Sea Miller MD (09/09/2018 12:30 PM) [id number]
[2018-09-09] MEDS ORDERED: hydrALAZINE 25 MG TABLET PO SCH (14:00)
[2018-09-09 14:51] VITALS: BP 181/75
[2018-09-09] MEDS ORDERED: INSULIN LISPRO 300 UNITS/3 ML INSULN.PEN. SQ SCH (16:30)
--- NOTE | 2018-09-09 19:37 | DS ---
DATE OF DISCHARGE: 09/09/2018 HOSPITAL COURSE: The patient is a 77-year-old male patient, who was admitted with altered mental status and was found to be febrile, has diabetic foot ulcer on the plantar aspect of left foot and bilateral cellulitis. His blood culture showed Gram-positive cocci in chains suggestive of Streptococcus; however, the identification and sensitivity is still pending. We did start him on IV antibiotic in the form of meropenem and Zyvox as he is ALLERGIC TO PENICILLIN and his white cell count, if anything, has gone up. He has also marked hyponatremia when he came with serum sodium that was somewhat low at 34 and blood sugar was suboptimally controlled. We did a bone scan, which showed that there is increased activity on all 3 phases of the left plantar mid foot, which could correspond with the site of the skin ulcer, possible mild involvement of the plantar margins of the medial cuneiform osteomyelitis given the persistence of activity on the delayed images; however, significant bone destruction is not identified on radiographs, bone involvement would be more definitely characterized with MRI, other radiotracer activity of the bilateral feet on delayed images may be due to sequelae of degenerative or neuropathic changes. Given that he will require treatment for prolonged with his antibiotic and also requires wound care and nutritional support as well as given his debility and deconditioning, a decision was made to transfer him to [facility] of [place], [place] to continue treatment there. PHYSICAL EXAMINATION: GENERAL: When I examined him this afternoon, he looked well and was clearly in no apparent respiratory distress. He was pale, no jaundice, cyanosis, or thyromegaly. No jugular venous distension. No lower limb edema. VITAL SIGNS: His heart rate was 72, blood pressure was 181/75, temperature was 98.2, respiratory rate was 20, and oxygen saturation was 96%. HEENT: Examination of the head, eyes, ears, nose and throat showed normocephalic, atraumatic. NECK: Supple. HEART: Showed normal first and second heart sounds with no gallop, rub or murmur. CHEST: Clear to auscultation. No crepitation or rhonchi. ABDOMEN: Distended, soft, nontender. NEUROLOGIC: He was awake, alert, responding appropriately. Cranial nerves are intact. EXTREMITIES: He moves his upper extremities to much good extent than lower extremities. He has neurofibromatosis affecting his right upper extremity. 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 His intake over the last 24 hours was 4450, output was 1750. LABORATORY DATA: His lab work this morning showed a serum sodium of 132, potassium 4, chloride 98, bicarbonate 18, anion gap of 16, BUN 37, creatinine 1.5, estimated GFR was 45 mL per minute. His glucose was 387, calcium was 7.5. His white cell count was 16,000, hemoglobin 12, hematocrit 39, MCV 97, and platelet count of [id number]. DISCHARGE MEDICATIONS: He was discharged to [facility] to continue on Lantus insulin 20 units at bedtime and he is on NovoLog insulin 50 units before meals, hydralazine 25 mg 3 times a day, heparin sodium 5000 subcutaneously q. 8 hourly. He is on meropenem 500 mg IV every 8 hours, linezolid, 600 mg IV q. 12 hourly. He is on acetaminophen 650 mg every 4 hours, metoprolol succinate 50 mg once a day, dutasteride for Avodart 0.5 mg daily, simvastatin 40 mg at bedtime, levothyroxine 175 mcg once a day, ondansetron 4 mg every 4 hours as needed, metoclopramide 10 mg before meals and bedtime, oxycodone/CPAP 10/325 one tablet 4 times a day, morphine sulfate extended release 60 mg twice a day, lactobacillus, rhamnosus 1 capsule twice a day. FINAL DISCHARGE DIAGNOSES: 1. Altered mental status, multifactorial, improved. 2. Bilateral lower extremity cellulitis. 3. Fever, leukocytosis with the growth of Gram-positive cocci in chains. 4. 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 5. Osteomyelitis of the left foot. 6. Neurofibromatosis with chronic pain syndrome and deformity of his right upper extremity. 7. Type 2 diabetes mellitus. 8. Chronic renal failure. 9. Hypothyroidism. ABDOULAYE ENRIQUEZ MD DR: MONIE/palmer JOB#: [id number] / [id number]
[2018-09-09] MEDS ORDERED: INSULIN GLARGINE 300 UNITS/3 ML INSULN.PEN. SQ SCH ×2 (21:00)
--- NOTE | 2018-09-09 22:44 | PN ---
DATE: 09/09/2018 SUBJECTIVE: The patient is resting, slightly propped up in bed, in no apparent distress. He continued to have nausea and hiccupping. OBJECTIVE: GENERAL: When I examined him, he looked somewhat pale, but no jaundice, cyanosis, lymphadenopathy or thyromegaly. No jugular venous distension. No limb edema. VITAL SIGNS: His heart rate was 76, blood pressure was 189/81, temperature was 97.5, respiratory rate 20, and oxygen saturation was 93% on room air. HEAD, EYES, EARS, NOSE AND THROAT: Showed normocephalic, atraumatic. NECK: Supple. HEART: Showed normal first and second heart sounds with no gallop, rub or murmur. CHEST: Clear to auscultation. No crepitation or rhonchi. ABDOMEN: Distended, soft, nontender. No guarding or rigidity. No organomegaly. Hernial orifice intact. Bowel sounds normal. NEUROLOGIC: He was awake, alert, responding appropriately. All cranial nerves intact. He moves his upper extremity to a greater extent than his lower extremities, mostly bed bound. His intake over the last 24 hours was 3350, output was 1050. His blood sugar continued to be high in the 300s. RADIOLOGICAL DATA: We did a bone scan yesterday, the result of which is still pending at the time of this dictation. His abdominal ultrasound and CT scan of the abdomen, both are unrevealing. ASSESSMENT: 1. Altered mental status, improving. 2. Bilateral fever, leukocytosis with a growth of gram-positive cocci in chains. 3. Bilateral lower extremity cellulitis. 4. Diabetic foot ulcer. 5. 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 6. Neurofibromatosis with chronic pain syndrome due to that. 7. Type 2 diabetes mellitus, poorly controlled. 8. Chronic renal failure. 9. Hypothyroidism. PLAN: To continue with IV antibiotic. I discontinued his IV fluid. I will add hydralazine as his blood pressure suboptimally controlled. He is on metoprolol succinate 50 mg once a day and we will continue with IV metoclopramide for diabetic gastroparesis and recurrent nausea and vomiting. ABDOULAYE ENRIQUEZ MD DR: MONIE/palmer JOB#: [id number] / [id number]
--- NOTE | 2018-09-17 23:24 | PN ---
DATE: 09/09/2018 SUBJECTIVE: The patient denies any new neurological complaints. He continues to have swelling and redness of the lower extremity consistent with cellulitis, more prominent on the left side and foot. Bone scan today revealed possibility of early osteomyelitis of the left foot. OBJECTIVE: GENERAL: Well-developed, well-nourished man not in acute distress. VITAL SIGNS: Blood pressure is 181/75, respiratory rate is 20, pulse is 72, temperature 98.2, oxygen saturation 96% on room air. HEENT: Normocephalic, atraumatic, otherwise unremarkable. NECK: Supple. Negative for carotid bruit, lymphadenopathy, or thyromegaly. LUNGS: Clear to A and P. CARDIOVASCULAR: Regular rate and rhythm, normal S1, S2. ABDOMEN: Soft. Bowel sounds positive. EXTREMITIES: Positive for bilateral cellulitis, more prominent on the left side. NEUROLOGIC: The patient is more alert and oriented. Speech is more fluent. There is no language dysfunction. Cranial nerves are intact. Motor examination reveals no focal muscle bulk seen. The strength was 4/5 throughout. Sensory examination revealed normal pinprick and light touch senses throughout. Deep tendon reflexes were symmetric and hypoactive with absent Achilles responses. Gait not tested, however the patient uses a walker for ambulation. IMPRESSION: 1. Acute encephalopathy - improved. 2. Cellulitis of the lower extremities and possible early osteomyelitis of the left foot. 3. Multiple medical problems include thrombocytopenia, depression, diabetes mellitus, renal insufficiency/failure. RECOMMENDATIONS: Continue with current management initiated by Dr. Solorzano including broad-spectrum antibiotics for possible underlying osteomyelitis. The patient is neurologically stable and unchanged. M Taylor LOAIZA MD DR: SVETLANA/palmer JOB#: [id number] / [id number]
== END 2018-09-09 15:08 | DRG 871 ==
LOC: ER 15:07 → 1 SOUTH 16:05
PROVIDERS: ADMIT Internal Medicine; ATTEND Internal Medicine
DX: A41.9 Sepsis, unspecified organism (principal); G92 Toxic encephalopathy; L03.115 Cellulitis of right lower limb; E87.1 Hypo-osmolality and hyponatremia; L97.409 Non-pressure chronic ulcer of unspecified heel and midfoot with unspecified severity; M86.8X7 Other osteomyelitis, ankle and foot; L03.116 Cellulitis of left lower limb; E11.69 Type 2 diabetes mellitus with other specified complication; E11.621 Type 2 diabetes mellitus with foot ulcer; D69.6 Thrombocytopenia, unspecified; E03.9 Hypothyroidism, unspecified; E11.65 Type 2 diabetes mellitus with hyperglycemia; E11.22 Type 2 diabetes mellitus with diabetic chronic kidney disease; E11.610 Type 2 diabetes mellitus with diabetic neuropathic arthropathy; E86.0 Dehydration; F32.9 Major depressive disorder, single episode, unspecified; R53.82 Chronic fatigue, unspecified; H40.9 Unspecified glaucoma; K43.9 Ventral hernia without obstruction or gangrene; G89.4 Chronic pain syndrome; I12.9 Hypertensive chronic kidney disease with stage 1 through stage 4 chronic kidney disease, or unspecified chronic kidney disease; K76.0 Fatty (change of) liver, not elsewhere classified; N18.9 Chronic kidney disease, unspecified; N28.1 Cyst of kidney, acquired; N40.0 Benign prostatic hyperplasia without lower urinary tract symptoms; Q85.00 Neurofibromatosis, unspecified; Z79.899 Other long term (current) drug therapy
CPT/HCPCS: 36415; 70450; 71045; 73630; 74176; 76700; 78315; 80048; 80053; 81001; 82947; 83036; 83605; 83615; 83690; 84484; 85007; 85025; 85610; 85651; 85730; 86140; 87040; 87070; 87186; 87205; 87804; 93005; 96365; 96374; A9503; J0456; J0696; J1815; J2020; J2185; J2765; J7050; Q0162; 92610; 99291-25; J7030

== ENCOUNTER 2019-03-31 09:55 | Inpatient (IN) | payer MEDICARE ==
[2019-03-31] VITALS (7 sets, daily range): BP systolic 170–196; BP diastolic 64–81
[~2019-03-31] VITALS: Ht 177.8 cm; Wt 91.2 kg
[~2019-03-31 09:55] MED LIST: CELE200C PO; DUTA0.5C PO; FURO40TA4 PO; LEVO175T5 PO; LOSA25TA11 PO; METO50TA29 PO; MORP60TA PO; OXYC1TAB22 PO; SIMV40TA3 PO
[2019-03-31] MEDS ORDERED: IV NORMAL SALINE 1,000ML 1,000 ML IV SCH (09:58)
--- NOTE | 2019-03-31 10:12 | EKG ---
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
[2019-03-31] MEDS ORDERED: ONDANSETRON PF 4 MG/2 ML VIAL. IV ONE (10:15)
--- NOTE | 2019-03-31 10:24 | PHYS DOC ---
Past History Past Medical History: Diabetes, Hypertension, Hypothyroid, Other Additional Past Medical Histor: chronic pain Past Surgical History: Coronary Bypass Surgery, Other Alcohol Use: Occasionally Drug Use: None Adult General Chief Complaint Chief Complaint: NAUSEA/VOMITING/DIARRHEA HPI HPI Patient is a 78-year-old male presents with 4 days of nausea vomiting, diarrhea started last evening. No blood in the stool or emesis. No travel. Patient denies any chest pain. EMS found that his blood sugar was in the 300s. Reports that he is thirsty. Denies any dysuria, hematuria, nor frequency. Denies any recent changes in his medicines. Nothing seems to make the symptoms better or worse. P ernesto does have a previous history of diabetes as well as cardiac surgery.[] Review of Systems Review of Systems Constitutional: Denies fever or chills [] Eyes: Denies change in visual acuity, redness, or eye pain [] HENT: Denies nasal congestion or sore throat [] Respiratory: Denies cough or shortness of breath [] Cardiovascular: No chest pain or palpitations[] GI: See history of present illness[] : Denies dysuria or hematuria [] Musculoskeletal: Denies back pain or joint pain [] Integument: Denies rash or skin lesions [] Neurologic: Denies headache, focal weakness or sensory changes [] Endocrine: Denies polyuria or polydipsia [] All other systems were reviewed and found to be within normal limits, except as documented in this note. Current Medications Current Medications Current Medications Medications (Trade) Dose Ordered Sig/Mk Start Time Stop Time Status Last Admin Dose Admin Ondansetron HCl (Zofran) 4 mg 1X ONCE 03/31/19 10:15 03/31/19 10:16 DC Sodium Chloride 1,000 ml @ 1,000 mls/hr Q1H 03/31/19 09:58 03/31/19 10:57 Allergies Allergies Allergies Coded Allergies Type Severity Reaction Last Updated Verified Penicillins Allergy Intermediate 09/08/18 Yes I S O L A T I O N *CONTACT* Allergy Unknown 09/12/18 Yes Physical Exam Physical Exam Constitutional: Well developed, well nourished, no acute distress, non-toxic appearance. [] HENT: Normocephalic, atraumatic, bilateral external ears normal, oropharynx slightly dry, no oral exudates, nose normal. [] Eyes: PERRLA, EOMI, conjunctiva normal, no discharge. [] Neck: Normal range of motion, no tenderness, supple, no stridor. [] Cardiovascular:Heart rate regular rhythm, no murmur [] Lungs & Thorax: Bilateral breath sounds clear to auscultation [] Abdomen: Bowel sounds normal, soft, no tenderness, no masses, no pulsatile masses. [] Skin: Warm, dry, no erythema, no rash. [] Back: No tenderness, no CVA tenderness. 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 The other 3 extremities show: No tenderness, no cyanosis, no clubbing, ROM intact, mild edema and stasis changes in bilateral lower extremities. [] Neurologic: Alert and oriented X 3, normal motor function, normal sensory function, no focal deficits noted. [] Psychologic: Affect normal, judgement normal, mood normal. [] Current Patient Data Vital Signs Vital Signs Date Time Temp Pulse Resp B/P (MAP) Pulse Ox O2 Delivery O2 Flow Rate FiO2 03/31/19 09:59 97.7 70 18 99 Room Air EKG EKG EKG shows a sinus rhythm at 68 bpm, normal axis, increased OH interval of 240 ms, right bundle-branch block, QTC of 467 ms, no ST elevations. Interpreted by me at 1011[] Radiology/Procedures Radiology/Procedures PORTABLE CHEST 1V Clinical indications: Elevated glucose. Nausea and vomiting. COMPARISON: September 06, 2018. Findings: Calcified granuloma of left lung base is again evident. No acute lung infiltrate or pleural effusion or pulmonary edema or lung mass or pneumothorax is seen. Sternotomy is again evident. The heart size, pulmonary vasculature, mediastinum and both gordon are otherwise unremarkable. Impression: No acute radiographic abnormality is seen. KUB Clinical indications: Nausea and vomiting. Elevated glucose. FINDINGS: There is a large amount of fecal retention throughout the colon and rectosigmoid region. No significant dilatation of colon is evident. There is moderate gaseous distention of stomach. No small bowel dilatation is evident. Multiple vascular calcifications of the anatomic pelvis are seen. Dextroscoliosis is seen. IMPRESSION: Significant fecal retention. Moderate gaseous distention of the stomach.[] Course & Med Decision Making Course & Med Decision Making Pertinent Labs and Imaging studies reviewed. (See chart for details) ED course: Patient arrived, was placed in bed, and tolerated exam well. After the initial liter of IV fluids his blood sugar improved to the upper 300s is noted in the laboratory testing. He was given a dose of insulin, the effects of which are still pending at the time of this dictation. Due to the constellation of factors noted in the medical decision making, he was admitted to the hospitalist service who graciously accepted. Medical decision making: Patient with nausea and vomiting as well as diabetes and hyperglycemia. There may be a mild diabetic ketoacidosis present given the 80 ketones in his urine, however his serum bicarbonate is within the normal range. He has acute kidney injury most likely as result of the nausea and vomiting, given that his baseline creatinine within our system is 1.5 and it is 1.9 today.[] Dragon Disclaimer Dragon Disclaimer This electronic medical record was generated, in whole or in part, using a voice recognition dictation system. Departure Departure: Impression: Primary Impression: Nausea & vomiting Additional Impressions: Diabetic ketoacidosis Dehydration Acute kidney injury Disposition: ADMITTED INPATIENT Admitting Physician: Anshul Denney Condition: IMPROVED Referrals: DIMITRI DEL CID (PCP) Problem Qualifiers Primary Impression: Nausea & vomiting Vomiting type: unspecified Vomiting Intractability: unspecified Qualified Codes: R11.2 - Nausea with vomiting, unspecified Additional Impressions: Diabetic ketoacidosis Diabetes mellitus type: due to underlying condition Diabetes mellitus complication detail: without coma Qualified Codes: E08.10 - Diabetes mellitus due to underlying condition with ketoacidosis without coma DEL DANIELS DO Mar 31, 2019 10:24
[2019-03-31 10:43] LABS: BASO % 0 % (0-3); EOS % 0 % (0-3); HEMATOCRIT 44.3 % (39.0-53.0); HEMOGLOBIN 14.5 g/dL (13.0-17.5); LYMPH % 8 % (24-48); MEAN CORPUSCULAR HEMOGLOBIN 31 pg (25-35); MEAN CORPUSCULAR HGB CONC 33 g/dL (31-37); MEAN CORPUSCULAR VOLUME 95 fL (79-100); MONO # 0.4 x10^3/uL (0.0-1.1); MONO % 3 % (0-9); NEUT % 89 % (31-73); PLATELET COUNT 254 x10^3/uL (140-400); RED BLOOD COUNT 4.66 x10^6/uL (4.30-5.70); RED CELL DISTRIBUTION WIDTH 18.3 % (11.5-14.5); WHITE BLOOD COUNT 12.4 x10^3/uL (4.0-11.0)
[2019-03-31 10:55] LABS: ALBUMIN 3.6 g/dL (3.4-5.0); ALBUMIN/GLOBULIN RATIO 0.9 (1.0-1.7); CALCIUM 9.5 mg/dL (8.5-10.1); CREATININE 1.9 mg/dL (0.7-1.3); GFR 34.5; POTASSIUM 4.1 mmol/L (3.5-5.1); TOTAL BILIRUBIN 0.9 mg/dL (0.2-1.0); TOTAL PROTEIN 7.5 g/dL (6.4-8.2)
--- NOTE | 2019-03-31 10:55 | RAD ---
PORTABLE CHEST 1V Clinical indications: Elevated glucose. Nausea and vomiting. COMPARISON: September 06, 2018. Findings: Calcified granuloma of left lung base is again evident. No acute lung infiltrate or pleural effusion or pulmonary edema or lung mass or pneumothorax is seen. Sternotomy is again evident. The heart size, pulmonary vasculature, mediastinum and both gordon are otherwise unremarkable. Impression: No acute radiographic abnormality is seen. Electronically signed by: Rob Schultz MD (03/31/2019 10:52 AM) [place] [id number]
--- NOTE | 2019-03-31 10:56 | RAD ---
KUB Clinical indications: Nausea and vomiting. Elevated glucose. FINDINGS: There is a large amount of fecal retention throughout the colon and rectosigmoid region. No significant dilatation of colon is evident. There is moderate gaseous distention of stomach. No small bowel dilatation is evident. Multiple vascular calcifications of the anatomic pelvis are seen. Dextroscoliosis is seen. IMPRESSION: Significant fecal retention. Moderate gaseous distention of the stomach. Electronically signed by: Rob Schultz MD (03/31/2019 10:54 AM) [facility]
[2019-03-31] MEDS ORDERED: IV NORMAL SALINE 1,000ML 1,000 ML IV ONE (12:00)
[2019-03-31] MEDS ORDERED: INSULIN REGULAR 100 UNIT/ML 3ML VIAL. IV ONE (12:30)
[2019-03-31] MEDS: IV NORMAL SALINE 1,000ML 1,000 ML IV SCH ×2 (12:40→20:40)
[2019-03-31 12:41] LABS: BILIRUBIN,URINE NEG (NEG); CLARITY,URINE HAZY; COLOR,URINE YELLOW; GLUCOSE,URINE >=1000 mg/dL (NEG)
[2019-03-31 12:42] LABS: BACTERIA,URINE FEW /HPF (0-FEW); HYALINE CASTS, URINE OCC /HPF; NITRITE,URINE NEG (NEG); SQUAMOUS EPITHELIAL CELL,UR OCC /LPF; UROBILINOGEN,URINE 0.2 mg/dL (0.2 mg/dL); WBC,URINE OCC /HPF (0-4)
[2019-03-31] MEDS ORDERED: ACETAMINOPHEN 325 MG TABLET PO PRN ×2 (12:45→15:00)
[2019-03-31] MEDS: ONDANSETRON PF 4 MG/2 ML VIAL. IV PRN ×2 (13:24→16:03)
--- NOTE | 2019-03-31 13:30 | NUR ---
The patient, TERRY PERES, 78 y/o, M admitted by MOISÉS MICHELE MD, was given written information regarding hospital policies, unit procedures and contact persons. Valuables were checked and the patient was made comfortable by staff.
[2019-03-31] MEDS ORDERED: MORP60TA PO (14:31)
[2019-03-31] MEDS ORDERED: INSU100I13 SQ (14:31)
[2019-03-31] MEDS ORDERED: NIFE60TA14 PO (14:31)
[2019-03-31] MEDS ORDERED: METO-247 PO (14:31)
[2019-03-31] MEDS ORDERED: [UNRECOGNIZED DRUG - CODE] INJ (14:31)
[2019-03-31] MEDS ORDERED: OXYC1TAB22 PO (14:31)
[2019-03-31] MEDS ORDERED: LOSA100T14 PO (14:31)
[2019-03-31] MEDS ORDERED: FINA5TAB4 PO (14:31)
[2019-03-31] MEDS ORDERED: ONDANSETRON PF 4 MG/2 ML VIAL. IV PRN (15:00)
[2019-03-31] MEDS ORDERED: DEXTROSE 50% 25 GM / 50ML DISP.SYRIN. IV PRN (15:00)
[2019-03-31] MEDS ORDERED: ELECTROLYTE (NON-ICU) PROTOCOL MC PRN (15:00)
[2019-03-31] MEDS: POTASSIUM CL 20MEQ IN 0.9%NACL 1,000 ML IV SCH (15:32)
[2019-03-31] MEDS: INSULIN LISPRO 300 UNITS/3 ML INSULN.PEN. SQ SCH (15:53)
[2019-03-31] MEDS: MORPHINE ER 30 MG TABLET.ER PO SCH ×2 (17:06→21:06)
[2019-03-31] MEDS ORDERED: INSULIN LISPRO 300 UNITS/3 ML INSULN.PEN. SQ ONE (17:30)
[2019-03-31] MEDS: PANTOPRAZOLE IV 40 MG VIAL. IVP SCH (18:00)
[2019-03-31] MEDS: METOPROLOL SUCC 24HR ER 50 MG TAB.ER.24H. PO SCH ×2 (18:45→20:51)
[2019-03-31] MEDS ORDERED: oxyCODONE/APAP 10/325 1 TAB TABLET PO PRN (18:45)
[2019-03-31] MEDS: METOCLOPRAMIDE HCL 10 MG/2 ML VIAL. IV PRN (19:55)
[2019-03-31] MEDS ORDERED: INSULIN GLARGINE 300 UNITS/3 ML INSULN.PEN. SQ SCH (21:00)
[2019-03-31] MEDS: HYDROmorphone PF 1 MG/ML DISP.SYRIN IV PRN (22:54)
--- NOTE | 2019-03-31 23:00 | NUR ---
Pt had brown emesis every time he drank some water. Pt is in pain and has had no relief from pain meds. MD notified and is aware. Orders received to decrease fluids for HTN, and changed pain medication.
[2019-04-01] VITALS (23 sets, daily range): BP systolic 111–189; BP diastolic 57–84
[2019-04-01] MEDS: HYDROmorphone PF 1 MG/ML DISP.SYRIN IV PRN ×6 (00:37→20:10)
[2019-04-01] MEDS: POTASSIUM CL 20MEQ IN 0.9%NACL 1,000 ML IV SCH ×2 (01:20→14:41)
[2019-04-01] MEDS: IV NORMAL SALINE 1,000ML 1,000 ML IV SCH (04:40)
[2019-04-01] MEDS: PANTOPRAZOLE IV 40 MG VIAL. IVP SCH ×2 (06:27→17:42)
[2019-04-01 06:46] LABS: BASO % 0 % (0-3); EOS % 0 % (0-3); HEMATOCRIT 35.1 % (39.0-53.0); HEMOGLOBIN 11.7 g/dL (13.0-17.5); LYMPH # 1.1 x10^3/uL (1.0-4.8); LYMPH % 9 % (24-48); MEAN CORPUSCULAR HEMOGLOBIN 31 pg (25-35); MEAN CORPUSCULAR HGB CONC 33 g/dL (31-37); MEAN CORPUSCULAR VOLUME 94 fL (79-100); MONO # 1.2 x10^3/uL (0.0-1.1); MONO % 10 % (0-9); NEUT # 10.1 x10^3uL (1.8-7.7); NEUT % 82 % (31-73); PLATELET COUNT 220 x10^3/uL (140-400); RED BLOOD COUNT 3.73 x10^6/uL (4.30-5.70); RED CELL DISTRIBUTION WIDTH 18.4 % (11.5-14.5); WHITE BLOOD COUNT 12.4 x10^3/uL (4.0-11.0)
[2019-04-01 07:12] LABS: ALBUMIN 2.7 g/dL (3.4-5.0); ALBUMIN/GLOBULIN RATIO 0.9 (1.0-1.7); CALCIUM 8.1 mg/dL (8.5-10.1); CREATININE 1.6 mg/dL (0.7-1.3); GFR 42.1; POTASSIUM 3.9 mmol/L (3.5-5.1); TOTAL BILIRUBIN 0.5 mg/dL (0.2-1.0); TOTAL PROTEIN 5.7 g/dL (6.4-8.2)
--- NOTE | 2019-04-01 07:33 | HP ---
ADMIT DATE: 03/31/2019 ATTENDING PHYSICIAN: Moisés Michele MD CHIEF COMPLAINT: Vomiting and weakness. HISTORY OF PRESENT ILLNESS: The patient is a 78-year-old gentleman with a 4-day history of nausea, vomiting and diarrhea, worsening last night. No blood in the stool. He has had some black vomitus. Sugars are elevated. He is diabetic. Blood sugar in the ED was 390. Clinically, he is dry. He is on diuretics. He is admitted then with probable gastroenteritis, although medication can also cause his symptoms. He does take a daily scheduled Celebrex for pain along with p.r.n. Aleve. The patient was given IV fluids. He is fairly alert. He is chronically ill. His mucous membranes are dry. He is admitted to the ICU with intensity of service. He will be here for greater than 2 nights. The patient denies any dysuria, travel, frequency, changes in medication. Nothing seems to make the symptoms better or worse. 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 PAST MEDICAL HISTORY: Again is significant for ____ neurofibromatosis. He also has type 2 diabetes along with degenerative arthritis, coronary artery disease, previous bypass surgery with postoperative complications of sternal wound dehiscence. Eventually, he had a second procedure with a mesh placed. He is having a lot of hiccups. SOCIAL HISTORY: He is a nonsmoker, nondrinker. FAMILY HISTORY: Noncontributory. REVIEW OF SYSTEMS: Significant for severe pain. He has been to a pain clinic. His current medicines also include 180 mg of MS Contin daily with oxycodone for breakthrough pain in addition to his Lantus and regular insulin. He has had previous osteomyelitis. He is diabetic. He has difficulty walking due to pain. He has had symptoms of nausea and vomiting. No hematemesis or bloody stool. All other systems are reviewed and determined to be negative. PHYSICAL EXAMINATION: GENERAL: When I saw him, this is a pleasant gentleman who was alert and oriented. INITIAL VITAL SIGNS: Showed a blood pressure 140/68, pulse is 80 and regular. He was afebrile. HEENT: Head is without trauma. Pupils are reactive. Sclerae nonicteric. Oropharynx clear. Mucous membrane is dry. LUNGS: Otherwise clear. CARDIOVASCULAR: Showed regular heart sounds. No obvious gallops. Peripheral pulses palpable and full. ABDOMEN: Soft, scaphoid, nontender, no organomegaly. Bowel sounds are hypoactive. EXTREMITIES: Showed no cyanosis. He has multiple nodules on his fingers and hands consistent with Schwann cell growth. They are painful to palpation. NEUROLOGIC: Focally intact. Speech was fluent. PERTINENT LABORATORY DATA: Hemoglobin is 14.5 g/dL in a hemoconcentrated state. White count 12,400. His electrolytes showed sodium of 134 mEq, potassium 4.1, creatinine is 1.9 mg/dL with a BUN of 45. Nonfasting blood sugar is 395 mg/dL. Lipase is normal. IMPRESSION: 1. A 78-year-old gentleman with nausea, vomiting and dehydration. 2. Poorly controlled diabetes mellitus. 3. History of fibromatosis and schwannoma. 4. Type 2 diabetes. 5. Acute kidney injury superimposed on chronic kidney disease. 6. Profound nausea, aggravated by his nonsteroidal and pain medicine use. PLAN: 1. Admit to the inpatient unit. I will put him in the ICU tonight. 2. Gentle IV hydration. 3. Diuretics have been held. 4. Pain control. 5. I would hold off the nonsteroidal agent. 6. Serial chemistry. 7. Empiric proton pump inhibitor. 8. We will follow his blood counts and daily creatinine. Long discussion with regarding pain management. MOISÉS MICHELE MD DR: NAOMI/palmer JOB#: [id number] / [id number] ABDOULAYE Bower MD
--- NOTE | 2019-04-01 08:19 | PDOC ---
SUBJECTIVE: CC: Nausea and pain Better, calm pain managed nausea managed wanting to eat OBJECTIVE: Problems: Problems Medical Problems: (1) Acute kidney injury Status: Acute (2) Dehydration Status: Acute (3) Diabetic ketoacidosis Status: Acute (4) Nausea & vomiting Status: Acute Blood sugars mid 200's, creatinine 1.6 mg/dl Vital Signs: Vital Signs Date Time Temp Pulse Resp B/P (MAP) Pulse Ox O2 Delivery O2 Flow Rate FiO2 04/01/19 07:54 67 16 111/59 (76) 100 Room Air 03/31/19 20:00 97.4 I & O Intake and Output 04/01/19 07:00 Intake Total 1465 ml Output Total 3000 ml Balance -1535 ml Intake Oral 340 ml IV Total 1125 ml Output Urine Total 2600 ml Emesis 400 ml Labs: Laboratory Tests Test 03/31/19 10:15 03/31/19 10:25 03/31/19 11:45 03/31/19 12:15 White Blood Count 12.4 x10^3/uL (4.0-11.0) Red Blood Count 4.66 x10^6/uL (4.30-5.70) Hemoglobin 14.5 g/dL (13.0-17.5) Hematocrit 44.3 % (39.0-53.0) Mean Corpuscular Volume 95 fL (79-100) Mean Corpuscular Hemoglobin 31 pg (25-35) Mean Corpuscular Hemoglobin Concent 33 g/dL (31-37) Red Cell Distribution Width 18.3 % (11.5-14.5) Platelet Count 254 x10^3/uL (140-400) Neutrophils (%) (Auto) 89 % (31-73) Lymphocytes (%) (Auto) 8 % (24-48) Monocytes (%) (Auto) 3 % (0-9) Eosinophils (%) (Auto) 0 % (0-3) Basophils (%) (Auto) 0 % (0-3) Neutrophils # (Auto) 11.0 x10^3uL (1.8-7.7) Lymphocytes # (Auto) 1.0 x10^3/uL (1.0-4.8) Monocytes # (Auto) 0.4 x10^3/uL (0.0-1.1) Eosinophils # (Auto) 0.0 x10^3/uL (0.0-0.7) Basophils # (Auto) 0.0 x10^3/uL (0.0-0.2) Sodium Level 134 mmol/L (136-145) Potassium Level 4.1 mmol/L (3.5-5.1) Chloride Level 93 mmol/L (98-107) Carbon Dioxide Level 22 mmol/L (21-32) Anion Gap 19 (6-14) Blood Urea Nitrogen 45 mg/dL (8-26) Creatinine 1.9 mg/dL (0.7-1.3) Estimated GFR (Cockcroft-Gault) 34.5 BUN/Creatinine Ratio 24 (6-20) Glucose Level 437 mg/dL (70-99) Calcium Level 9.5 mg/dL (8.5-10.1) Total Bilirubin 0.9 mg/dL (0.2-1.0) Aspartate Amino Transf (AST/SGOT) 17 U/L (15-37) Alanine Aminotransferase (ALT/SGPT) 25 U/L (16-63) Alkaline Phosphatase 64 U/L (46-116) Total Protein 7.5 g/dL (6.4-8.2) Albumin 3.6 g/dL (3.4-5.0) Albumin/Globulin Ratio 0.9 (1.0-1.7) Lipase 67 U/L (73-393) Acetone Level Sm pos (NEG) Troponin I Quantitative 0.017 ng/mL (0-0.055) Glucose (Fingerstick) 395 mg/dL (70-99) Urine Collection Type U cath Urine Color Yellow Urine Clarity Hazy Urine pH 5.5 Urine Specific [place] 1.015 Urine Protein 100 mg/dl (NEG-TRACE) Urine Glucose (UA) >=1000 mg/dL (NEG) Urine Ketones (Stick) 80 mg/dL (NEG) Urine Blood Neg (NEG) Urine Nitrite Neg (NEG) Urine Bilirubin Neg (NEG) Urine Urobilinogen Dipstick 0.2 mg/dL (0.2 mg/dL) Urine Leukocyte Esterase Neg (NEG) Urine RBC 3-5 /HPF (0-2) Urine WBC Occ /HPF (0-4) Urine Squamous Epithelial Cells Occ /LPF Urine Bacteria Few /HPF (0-FEW) Urine Hyaline Casts Occ /HPF Urine Mucus Slight /LPF Test 6/7/19 13:14 03/31/19 14:48 03/31/19 17:12 03/31/19 18:27 Glucose (Fingerstick) 378 mg/dL (70-99) 380 mg/dL (70-99) 433 mg/dL (70-99) 333 mg/dL (70-99) Test 03/31/19 19:20 03/31/19 21:02 04/01/19 00:41 04/01/19 05:08 Glucose (Fingerstick) 349 mg/dL (70-99) 324 mg/dL (70-99) 297 mg/dL (70-99) 276 mg/dL (70-99) Test 04/01/19 06:21 White Blood Count 12.4 x10^3/uL (4.0-11.0) Red Blood Count 3.73 x10^6/uL (4.30-5.70) Hemoglobin 11.7 g/dL (13.0-17.5) Hematocrit 35.1 % (39.0-53.0) Mean Corpuscular Volume 94 fL (79-100) Mean Corpuscular Hemoglobin 31 pg (25-35) Mean Corpuscular Hemoglobin Concent 33 g/dL (31-37) Red Cell Distribution Width 18.4 % (11.5-14.5) Platelet Count 220 x10^3/uL (140-400) Neutrophils (%) (Auto) 82 % (31-73) Lymphocytes (%) (Auto) 9 % (24-48) Monocytes (%) (Auto) 10 % (0-9) Eosinophils (%) (Auto) 0 % (0-3) Basophils (%) (Auto) 0 % (0-3) Neutrophils # (Auto) 10.1 x10^3uL (1.8-7.7) Lymphocytes # (Auto) 1.1 x10^3/uL (1.0-4.8) Monocytes # (Auto) 1.2 x10^3/uL (0.0-1.1) Eosinophils # (Auto) 0.0 x10^3/uL (0.0-0.7) Basophils # (Auto) 0.0 x10^3/uL (0.0-0.2) Sodium Level 141 mmol/L (136-145) Potassium Level 3.9 mmol/L (3.5-5.1) Chloride Level 105 mmol/L (98-107) Carbon Dioxide Level 27 mmol/L (21-32) Anion Gap 9 (6-14) Blood Urea Nitrogen 46 mg/dL (8-26) Creatinine 1.6 mg/dL (0.7-1.3) Estimated GFR (Cockcroft-Gault) 42.1 BUN/Creatinine Ratio 29 (6-20) Glucose Level 282 mg/dL (70-99) Calcium Level 8.1 mg/dL (8.5-10.1) Total Bilirubin 0.5 mg/dL (0.2-1.0) Aspartate Amino Transf (AST/SGOT) 13 U/L (15-37) Alanine Aminotransferase (ALT/SGPT) 20 U/L (16-63) Alkaline Phosphatase 45 U/L (46-116) Total Protein 5.7 g/dL (6.4-8.2) Albumin 2.7 g/dL (3.4-5.0) Albumin/Globulin Ratio 0.9 (1.0-1.7) Physical Exam: HEENT PERRLA, mucous membranes moist Neck:supple Lungs: good breath sounds CV: RRR, no gallops Abdomen: Soft, no guarding nor rebound tenderness, ventral hernia EXT: no edema Neuro: alert, coherent ASSESSMENT: Dehydration, improved Gastroenteritis DM II HTN Neurofibromas Chronic pain syndrome with longstanding Narcotic use PLAN: Clear liquid diet Lantus dose increased Pain management Up to chair PT evaluation MOISÉS MICHELE MD Apr 01, 2019 08:19
[2019-04-01] MEDS: INSULIN LISPRO 300 UNITS/3 ML INSULN.PEN. SQ SCH ×3 (08:33→17:00)
[2019-04-01] MEDS: MORPHINE ER 30 MG TABLET.ER PO SCH ×3 (10:42→20:10)
[2019-04-01] MEDS: METOPROLOL SUCC 24HR ER 50 MG TAB.ER.24H. PO SCH ×2 (10:43→20:10)
[2019-04-01] MEDS: METOCLOPRAMIDE HCL 10 MG/2 ML VIAL. IV PRN (10:44)
[2019-04-01] MEDS ORDERED: MAGNESIUM CITRATE 296 ML SOLUTION. PO PRN (11:00)
[2019-04-01] MEDS: INSULIN GLARGINE 300 UNITS/3 ML INSULN.PEN. SQ SCH (20:16)
[2019-04-02] VITALS (13 sets, daily range): BP systolic 124–168; BP diastolic 56–73
[2019-04-02] MEDS: HYDROmorphone PF 1 MG/ML DISP.SYRIN IV PRN ×4 (00:44→19:44)
[2019-04-02] MEDS: POTASSIUM CL 20MEQ IN 0.9%NACL 1,000 ML IV SCH ×2 (04:11→17:34)
[2019-04-02] MEDS: PANTOPRAZOLE IV 40 MG VIAL. IVP SCH ×2 (07:26→17:34)
--- NOTE | 2019-04-02 07:52 | PDOC ---
SUBJECTIVE: Alert Pain managed Nausea resolved OBJECTIVE: Problems: Problems Medical Problems: (1) Acute kidney injury Status: Acute (2) Dehydration Status: Acute (3) Diabetic ketoacidosis Status: Acute (4) Nausea & vomiting Status: Acute labs pending Vital Signs: Vital Signs Date Time Temp Pulse Resp B/P (MAP) Pulse Ox O2 Delivery O2 Flow Rate FiO2 04/02/19 07:41 56 13 139/73 (95) 97 Room Air 04/02/19 04:20 98.7 04/01/19 16:40 2.0 I & O Intake and Output 04/02/19 06:59 Intake Total 2610 ml Output Total 1350 ml Balance 1260 ml Intake Oral 1610 ml IV Total 1000 ml Output Urine Total 1350 ml Labs: Laboratory Tests Test 03/31/19 10:15 03/31/19 10:25 03/31/19 11:45 03/31/19 12:15 White Blood Count 12.4 x10^3/uL (4.0-11.0) Red Blood Count 4.66 x10^6/uL (4.30-5.70) Hemoglobin 14.5 g/dL (13.0-17.5) Hematocrit 44.3 % (39.0-53.0) Mean Corpuscular Volume 95 fL (79-100) Mean Corpuscular Hemoglobin 31 pg (25-35) Mean Corpuscular Hemoglobin Concent 33 g/dL (31-37) Red Cell Distribution Width 18.3 % (11.5-14.5) Platelet Count 254 x10^3/uL (140-400) Neutrophils (%) (Auto) 89 % (31-73) Lymphocytes (%) (Auto) 8 % (24-48) Monocytes (%) (Auto) 3 % (0-9) Eosinophils (%) (Auto) 0 % (0-3) Basophils (%) (Auto) 0 % (0-3) Neutrophils # (Auto) 11.0 x10^3uL (1.8-7.7) Lymphocytes # (Auto) 1.0 x10^3/uL (1.0-4.8) Monocytes # (Auto) 0.4 x10^3/uL (0.0-1.1) Eosinophils # (Auto) 0.0 x10^3/uL (0.0-0.7) Basophils # (Auto) 0.0 x10^3/uL (0.0-0.2) Sodium Level 134 mmol/L (136-145) Potassium Level 4.1 mmol/L (3.5-5.1) Chloride Level 93 mmol/L (98-107) Carbon Dioxide Level 22 mmol/L (21-32) Anion Gap 19 (6-14) Blood Urea Nitrogen 45 mg/dL (8-26) Creatinine 1.9 mg/dL (0.7-1.3) Estimated GFR (Cockcroft-Gault) 34.5 BUN/Creatinine Ratio 24 (6-20) Glucose Level 437 mg/dL (70-99) Calcium Level 9.5 mg/dL (8.5-10.1) Total Bilirubin 0.9 mg/dL (0.2-1.0) Aspartate Amino Transf (AST/SGOT) 17 U/L (15-37) Alanine Aminotransferase (ALT/SGPT) 25 U/L (16-63) Alkaline Phosphatase 64 U/L (46-116) Total Protein 7.5 g/dL (6.4-8.2) Albumin 3.6 g/dL (3.4-5.0) Albumin/Globulin Ratio 0.9 (1.0-1.7) Lipase 67 U/L (73-393) Acetone Level Sm pos (NEG) Troponin I Quantitative 0.017 ng/mL (0-0.055) Glucose (Fingerstick) 395 mg/dL (70-99) Urine Collection Type U cath Urine Color Yellow Urine Clarity Hazy Urine pH 5.5 Urine Specific [place] 1.015 Urine Protein 100 mg/dl (NEG-TRACE) Urine Glucose (UA) >=1000 mg/dL (NEG) Urine Ketones (Stick) 80 mg/dL (NEG) Urine Blood Neg (NEG) Urine Nitrite Neg (NEG) Urine Bilirubin Neg (NEG) Urine Urobilinogen Dipstick 0.2 mg/dL (0.2 mg/dL) Urine Leukocyte Esterase Neg (NEG) Urine RBC 3-5 /HPF (0-2) Urine WBC Occ /HPF (0-4) Urine Squamous Epithelial Cells Occ /LPF Urine Bacteria Few /HPF (0-FEW) Urine Hyaline Casts Occ /HPF Urine Mucus Slight /LPF Test 03/31/19 13:14 03/31/19 14:48 03/31/19 14:53 03/31/19 17:12 Glucose (Fingerstick) 378 mg/dL (70-99) 380 mg/dL (70-99) 433 mg/dL (70-99) Nasal Screen MRSA (PCR) Negative (Negative) Test 03/31/19 18:27 03/31/19 19:20 03/31/19 21:02 04/01/19 00:41 Glucose (Fingerstick) 333 mg/dL (70-99) 349 mg/dL (70-99) 324 mg/dL (70-99) 297 mg/dL (70-99) Test 04/01/19 05:08 04/01/19 06:21 04/01/19 08:16 04/01/19 12:18 Glucose (Fingerstick) 276 mg/dL (70-99) 235 mg/dL (70-99) 169 mg/dL (70-99) White Blood Count 12.4 x10^3/uL (4.0-11.0) Red Blood Count 3.73 x10^6/uL (4.30-5.70) Hemoglobin 11.7 g/dL (13.0-17.5) Hematocrit 35.1 % (39.0-53.0) Mean Corpuscular Volume 94 fL (79-100) Mean Corpuscular Hemoglobin 31 pg (25-35) Mean Corpuscular Hemoglobin Concent 33 g/dL (31-37) Red Cell Distribution Width 18.4 % (11.5-14.5) Platelet Count 220 x10^3/uL (140-400) Neutrophils (%) (Auto) 82 % (31-73) Lymphocytes (%) (Auto) 9 % (24-48) Monocytes (%) (Auto) 10 % (0-9) Eosinophils (%) (Auto) 0 % (0-3) Basophils (%) (Auto) 0 % (0-3) Neutrophils # (Auto) 10.1 x10^3uL (1.8-7.7) Lymphocytes # (Auto) 1.1 x10^3/uL (1.0-4.8) Monocytes # (Auto) 1.2 x10^3/uL (0.0-1.1) Eosinophils # (Auto) 0.0 x10^3/uL (0.0-0.7) Basophils # (Auto) 0.0 x10^3/uL (0.0-0.2) Sodium Level 141 mmol/L (136-145) Potassium Level 3.9 mmol/L (3.5-5.1) Chloride Level 105 mmol/L (98-107) Carbon Dioxide Level 27 mmol/L (21-32) Anion Gap 9 (6-14) Blood Urea Nitrogen 46 mg/dL (8-26) Creatinine 1.6 mg/dL (0.7-1.3) Estimated GFR (Cockcroft-Gault) 42.1 BUN/Creatinine Ratio 29 (6-20) Glucose Level 282 mg/dL (70-99) Calcium Level 8.1 mg/dL (8.5-10.1) Total Bilirubin 0.5 mg/dL (0.2-1.0) Aspartate Amino Transf (AST/SGOT) 13 U/L (15-37) Alanine Aminotransferase (ALT/SGPT) 20 U/L (16-63) Alkaline Phosphatase 45 U/L (46-116) Total Protein 5.7 g/dL (6.4-8.2) Albumin 2.7 g/dL (3.4-5.0) Albumin/Globulin Ratio 0.9 (1.0-1.7) Test 04/01/19 16:51 04/01/19 19:26 04/02/19 07:11 Glucose (Fingerstick) 164 mg/dL (70-99) 282 mg/dL (70-99) 131 mg/dL (70-99) Physical Exam: HEENT: PERRLA Neck Supple Lungs clear CV: Bradycardia, rate 56/min Abdomen: soft, no guarding Ext: no edema Neuro: Alert, speech is fluent ASSESSMENT: Dehydration, rehydrated DM II, sugars better controlled Gastroenteritis, resolving Neurofibromas Chronic pain syndrome, requiring high dose narcotics PLAN: DC IV Fluids Advance diet Increase activity Gucose control PT evaluation MOISÉS MICHELE MD Apr 02, 2019 07:51
[2019-04-02] MEDS: INSULIN LISPRO 300 UNITS/3 ML INSULN.PEN. SQ SCH ×3 (08:00→17:09)
[2019-04-02] MEDS: METOPROLOL SUCC 24HR ER 50 MG TAB.ER.24H. PO SCH ×2 (09:17→21:01)
[2019-04-02] MEDS: METOCLOPRAMIDE HCL 10 MG/2 ML VIAL. IV PRN (09:18)
[2019-04-02] MEDS: MORPHINE ER 30 MG TABLET.ER PO SCH ×3 (09:18→21:03)
[2019-04-02 09:47] LABS: CALCIUM 7.8 mg/dL (8.5-10.1); CREATININE 1.4 mg/dL (0.7-1.3); GFR 49.1; POTASSIUM 4.3 mmol/L (3.5-5.1)
[2019-04-02] MEDS: INSULIN GLARGINE 300 UNITS/3 ML INSULN.PEN. SQ SCH (21:05)
[2019-04-03] MEDS: HYDROmorphone PF 1 MG/ML DISP.SYRIN IV PRN ×3 (01:56→12:54)
[2019-04-03 04:29] VITALS: BP 155/76
[2019-04-03 07:37] LABS: BASO % 1 % (0-3); EOS # 0.2 x10^3/uL (0.0-0.7); EOS % 4 % (0-3); HEMATOCRIT 34.7 % (39.0-53.0); HEMOGLOBIN 11.6 g/dL (13.0-17.5); LYMPH # 1.5 x10^3/uL (1.0-4.8); LYMPH % 23 % (24-48); MEAN CORPUSCULAR HEMOGLOBIN 32 pg (25-35); MEAN CORPUSCULAR HGB CONC 34 g/dL (31-37); MEAN CORPUSCULAR VOLUME 94 fL (79-100); MONO # 0.6 x10^3/uL (0.0-1.1); MONO % 10 % (0-9); NEUT # 4.2 x10^3uL (1.8-7.7); NEUT % 63 % (31-73); PLATELET COUNT 199 x10^3/uL (140-400); RED BLOOD COUNT 3.68 x10^6/uL (4.30-5.70); RED CELL DISTRIBUTION WIDTH 18.9 % (11.5-14.5); WHITE BLOOD COUNT 6.7 x10^3/uL (4.0-11.0)
[2019-04-03] MEDS: PANTOPRAZOLE IV 40 MG VIAL. IVP SCH (07:54)
[2019-04-03 07:55] LABS: CALCIUM 8.1 mg/dL (8.5-10.1); CREATININE 1.2 mg/dL (0.7-1.3); GFR 58.7; POTASSIUM 4.6 mmol/L (3.5-5.1)
[2019-04-03] MEDS: MORPHINE ER 30 MG TABLET.ER PO SCH ×2 (07:56→14:37)
[2019-04-03] MEDS: METOPROLOL SUCC 24HR ER 50 MG TAB.ER.24H. PO SCH (07:57)
[2019-04-03 08:00] VITALS: BP 135/58
[2019-04-03] MEDS: INSULIN LISPRO 300 UNITS/3 ML INSULN.PEN. SQ SCH ×2 (08:00→14:39)
[2019-04-03 12:00] VITALS: BP 137/63
[2019-04-03] MEDS ORDERED: HYDR2TAB31 PO (16:41)
--- NOTE | 2019-04-03 17:43 | DS ---
DATE OF DISCHARGE: 04/03/2019 HISTORY OF PRESENT ILLNESS AND HOSPITAL COURSE: The patient is a 78-year-old male patient, who came to the Emergency Room with the complaints of recurrent bouts of nausea, vomiting and diarrhea. His blood sugar was also poorly controlled. He was also taking Celebrex as well as Aleve and his Aleve and Celebrex were discontinued and he was started on intravenous fluids and his pain medication was switched to Dilaudid and he did actually very well. The patient has had no further episodes of nausea and vomiting and no diarrhea. His lab work has dramatically improved. His creatinine came down from 1.9 to 1.2. The patient has been tolerating his food and a decision was made to discharge him home, to continue to follow up with his primary care physician. I did discontinue his oxycodone and switch him to hydromorphone. PHYSICAL EXAMINATION: GENERAL: When I saw him this afternoon, he looked well and was clearly in no apparent respiratory distress. No pallor, jaundice, cyanosis or thyromegaly. No jugular venous distention. No lower limb edema. VITAL SIGNS: His heart rate was 58, blood pressure was 137/63, temperature was 98.1, respiratory rate was 18 and oxygen saturation was 96% on room air. HEENT: Examination of the head, eyes, ears, nose and throat showed normocephalic and atraumatic. NECK: Supple. CARDIOVASCULAR: Heart showed normal first and second heart sounds with no gallop, rub or murmur. CHEST: Clear to auscultation. No crepitation or rhonchi. GASTROINTESTINAL: Abdomen was distended, soft and nontender. No guarding or rigidity. No organomegaly. All hernial orifices intact. Bowel sounds are normal. NEUROLOGICAL: He is awake, alert and responding appropriately. All cranial nerves intact. He moves extremities without difficulty. He is mostly wheelchair bound. His intake was 2600 and output was 1550. LABORATORY EVALUATION AND RADIOGRAPHIC EVALUATION: Labs as of this morning show serum sodium was 139, potassium 4.6, chloride 107, bicarbonate 29, anion gap of 3, BUN 27, creatinine 1.2 and estimated GFR was 68 mL per minute. His glucose 132 and calcium was 8.1. His white cell count was 6700, hemoglobin 11.6, hematocrit 34.7, MCV 94 and platelet count of 199,000. Urinalysis was essentially unremarkable. Toxic screen was negative. His nasal screen for Methicillin-resistant Staphylococcus aureus by PCR was negative. DISCHARGE MEDICATIONS: He was discharged home, to continue on finasteride 5 mg once a day, furosemide 40 mg daily, Lantus insulin 35 units at bedtime, levothyroxine sodium 175 mcg once a day, losartan potassium 100 mg daily, metoprolol succinate 100 mg twice a day, morphine sulfate or MS Contin 60 mg 3 times a day, nifedipine 60 mg daily, simvastatin 40 mg at bedtime, testosterone 100 grams powder 200 mg injectable form every 10 days and he is also on hydromorphone 2 mg 3 times a day. FINAL DISCHARGE DIAGNOSES: Acute gastroenteritis, resolved; acute kidney injury, resolved and he has had multiple other medical problems including hypertension; type 2 diabetes; hypothyroidism; he is also known to have coronary artery disease, status post coronary artery bypass graft surgery and neurofibromatosis. ABDOULAYE ENRIQUEZ MD DR: MONIE/palmer JOB#: [id number] / [id number]
--- NOTE | 2019-04-03 19:14 | NUR ---
Pt discharged home for self care. Pt given verbal and written discharge, follow up, and medication instructions by this nurse. Verbal understanding from pt received. Pt left unit in stable condition via wheelchair accompanied by this nurse and spouse.
== END 2019-04-03 17:30 | disposition home or self-care (01) | DRG 682 ==
LOC: ER 09:55 → ICU 12:24
PROVIDERS: ADMIT Hospitalist; ATTEND Hospitalist
DX: N17.9 Acute kidney failure, unspecified (principal); E11.10 Type 2 diabetes mellitus with ketoacidosis without coma; K52.9 Noninfective gastroenteritis and colitis, unspecified; E11.22 Type 2 diabetes mellitus with diabetic chronic kidney disease; E86.0 Dehydration; E03.9 Hypothyroidism, unspecified; I12.9 Hypertensive chronic kidney disease with stage 1 through stage 4 chronic kidney disease, or unspecified chronic kidney disease; I25.10 Atherosclerotic heart disease of native coronary artery without angina pectoris; N18.9 Chronic kidney disease, unspecified; G89.4 Chronic pain syndrome; M19.90 Unspecified osteoarthritis, unspecified site; Q85.00 Neurofibromatosis, unspecified; Z95.1 Presence of aortocoronary bypass graft; Z88.0 Allergy status to penicillin; Z99.3 Dependence on wheelchair
CPT/HCPCS: 36415; 71045; 74018; 80048; 80053; 81001; 82010; 82947; 83690; 84484; 85025; 87641; 93005; 96361; 96374; 96375; C9113; J1170; J1815; J2405; J2765; J3010; P9612; 97530; 99285-25; J7030

== ENCOUNTER 2019-06-15 09:09 | Emergency (ER) | payer MEDICARE ==
[~2019-06-15] VITALS: Ht 177.8 cm; Wt 93.0 kg
[~2019-06-15 09:09] MED LIST changes: +FINA5TAB4 PO; +HYDR2TAB31 PO; +INSU100I13 SQ; +LOSA100T14 PO; +METO-247 PO; -MORP60TA PO; +MORP60TA60 PO; +NIFE60TA14 PO; +[UNRECOGNIZED DRUG - CODE] INJ
[2019-06-15] MEDS ORDERED: IV NORMAL SALINE 1,000ML 1,000 ML IV SCH (09:27)
--- NOTE | 2019-06-15 09:33 | EKG ---
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
[2019-06-15 09:44] LABS: BASO % 0 % (0-3); EOS % 0 % (0-3); HEMATOCRIT 35.1 % (39.0-53.0); HEMOGLOBIN 11.8 g/dL (13.0-17.5); LYMPH # 0.6 x10^3/uL (1.0-4.8); LYMPH % 8 % (24-48); MEAN CORPUSCULAR HEMOGLOBIN 32 pg (25-35); MEAN CORPUSCULAR HGB CONC 34 g/dL (31-37); MEAN CORPUSCULAR VOLUME 96 fL (79-100); MONO % 14 % (0-9); NEUT # 5.4 x10^3uL (1.8-7.7); NEUT % 78 % (31-73); PLATELET COUNT 295 x10^3/uL (140-400); RED BLOOD COUNT 3.66 x10^6/uL (4.30-5.70); RED CELL DISTRIBUTION WIDTH 13.8 % (11.5-14.5); WHITE BLOOD COUNT 6.9 x10^3/uL (4.0-11.0)
[2019-06-15] MEDS ORDERED: PROCHLORPERAZINE 10 MG/2 ML VIAL. IV ONE (09:45)
[2019-06-15 09:55] LABS: ALBUMIN 2.3 g/dL (3.4-5.0); ALBUMIN/GLOBULIN RATIO 0.5 (1.0-1.7); CALCIUM 9.8 mg/dL (8.5-10.1); CREATININE 1.9 mg/dL (0.7-1.3); GFR 34.5; TOTAL BILIRUBIN 0.4 mg/dL (0.2-1.0); TOTAL PROTEIN 6.7 g/dL (6.4-8.2)
--- NOTE | 2019-06-15 10:08 | RAD ---
Indication:Cough, nausea and vomiting. TECHNIQUE:Portable AP chest X-ray COMPARISON: 03/31/2019 FINDINGS: Heart is normal in size. Lungs are clear. No pneumothorax or effusion. Calcified granulomas in the left lung base. Visualized bony thorax within normal limits. IMPRESSION: No acute pulmonary process. Electronically signed by: Ranjan Minor DO (06/15/2019 10:05 AM) [facility]
--- NOTE | 2019-06-15 10:18 | RAD ---
EXAM: CT Abdomen and Pelvis without IV contrast CLINICAL HISTORY: Nausea, vomiting. COMPARISON: none TECHNIQUE: Helical CT of the abdomen and pelvis without intravenous contrast. Axial, coronal and sagittal reformatted images were generated. PQRS compliance statement - One or more of the following individualized dose reduction techniques were utilized for this study: 1. Automated exposure control 2. Adjustment of the mA and/or kV according to patient size 3. Use of iterative reconstruction technique FINDINGS: Lack of intravenous contrast limits evaluation of solid organs, vasculature, and lymph nodes. Lower chest: Linear wedge-shaped opacities in the lower lobes and lingula likely scarring/atelectasis. Coronary artery and aortic root calcifications are seen. No pericardial effusion. Abdomen and Pelvis: Hepatic hypoattenuation likely hepatic steatosis. Gallbladder is normal. Spleen is unremarkable with a few scattered calcified granulomas. Adrenal glands are unremarkable. Calcified right interpolar renal cystic lesion is seen. Hypodense posterior right interpolar renal lesion measures fluid soft tissue density measuring 1.1 cm, stable. Additional hypodense bilateral renal lesions measure fluid density, likely cystic. No hydronephrosis. No definite renal tract calculus. Diffuse bladder wall thickening may be seen with cystitis. Large volume colonic stool content is seen throughout the colon. This is particularly prominent at the rectum, with fecal material appearing impacted in the rectosigmoid. No evidence for small or large bowel dilatation. The stomach is markedly distended with fluid. Appendix is normal. Diffuse mesenteric infiltration is seen, of uncertain clinical significance, grossly unchanged compared to prior examination. Dense atherosclerotic calcifications of the aorta are seen. Ventral abdominal hernia containing a segment of colon. Bones: Chronic/healed right iliac bone fracture. Degenerative changes of the spine are seen. IMPRESSION: 1. Large volume colonic stool content large volume stool likely impacted within the rectosigmoid. This may be seen with constipation. 2. Stomach is markedly distended with fluid. This may be a result of recent meal/ingestion although pyloric or proximal small bowel obstruction cannot be entirely excluded 3. Nonspecific mesenteric infiltration/engorgement, grossly stable to prior CT. No free or loculated fluid collection or pneumoperitoneum. 4. High density renal lesions are essentially unchanged to prior CT from 09/08/2018. This can be correlated with ultrasound or MRI if not previously performed to exclude solid lesion. 5. Diffuse bladder wall thickening may be seen with cystitis. Electronically signed by: Miguel Farooq MD (06/15/2019 10:15 AM) [id number]
--- NOTE | 2019-06-15 10:38 | PHYS DOC ---
Past History Past Medical History: Diabetes, Hypertension, Hypothyroid, Other Additional Past Medical Histor: chronic pain Past Surgical History: Coronary Bypass Surgery, Other Alcohol Use: Occasionally Drug Use: None Adult General Chief Complaint Chief Complaint: HEMATEMESIS/VOMITING BLOOD HPI HPI Patient is a 78-year-old male brought in by EMS due to vomiting and abdominal pain. The patient reports the emesis was black and tarry in nature. The abdominal pain was diffuse. EMS gave him Zofran and fentanyl which did significantly improve the discomfort. Patient has previous history of cardiac bypass surgery in 1999 but is not currently on any blood thinners or aspirin a day. He denies any blood in stool or emesis. He notes that he has had a cough, uncertain as to whether cough is triggering the vomiting or cough of is following the vomiting. No recent change in diet. No recent travel. No fevers. No chest pain or palpitations.[] Review of Systems Review of Systems Constitutional: Denies fever or chills [] Eyes: Denies change in visual acuity, redness, or eye pain [] HENT: Denies nasal congestion or sore throat [] Respiratory: Denies cough or shortness of breath [] Cardiovascular: No chest pain or palpitations[] GI: See history of present illness[] : Denies dysuria or hematuria [] Musculoskeletal: Denies back pain or joint pain [] Integument: Denies rash or skin lesions [] Neurologic: Denies headache, focal weakness or sensory changes [] Endocrine: Denies polyuria or polydipsia [] All other systems were reviewed and found to be within normal limits, except as documented in this note. Current Medications Current Medications Current Medications Medications (Trade) Dose Ordered Sig/Mk Start Time Stop Time Status Last Admin Dose Admin Prochlorperazine Edisylate (Compazine) 5 mg 1X ONCE 06/15/19 09:45 06/15/19 09:46 DC 06/15/19 10:03 5 MG Sodium Chloride 1,000 ml @ 1,000 mls/hr Q1H 06/15/19 09:27 06/15/19 10:26 06/15/19 10:03 1,000 MLS/HR Allergies Allergies Allergies Coded Allergies Type Severity Reaction Last Updated Verified Iodinated Contrast- Oral and IV Dye Allergy Severe 03/31/19 Yes Penicillins Allergy Intermediate 11/15/18 Yes tapentadol Allergy Intermediate 04/02/19 Yes Physical Exam Physical Exam Constitutional: Well developed, well nourished, no acute distress, non-toxic appearance. [] HENT: Normocephalic, atraumatic, bilateral external ears normal, oropharynx moist, no oral exudates, nose normal. [] Eyes: PERRLA, EOMI, conjunctiva normal, no discharge. [] Neck: Normal range of motion, no tenderness, supple, no stridor. [] Cardiovascular:Heart rate regular rhythm, no murmur [] Lungs & Thorax: Bilateral breath sounds clear to auscultation [] Abdomen: Bowel sounds normal, soft, no tenderness, no masses, no pulsatile dieter s. [] Skin: Warm, dry, no erythema, no rash. [] Back: No tenderness, no CVA tenderness. [] Extremities: No tenderness, no cyanosis, no clubbing, ROM intact, no edema. [] Neurologic: Alert and oriented X 3, normal motor function, normal sensory function, no focal deficits noted. [] Psychologic: Affect normal, judgement normal, mood normal. [] Current Patient Data Vital Signs Vital Signs Date Time Temp Pulse Resp B/P (MAP) Pulse Ox O2 Delivery O2 Flow Rate FiO2 06/15/19 09:09 97.9 82 17 95 Room Air Lab Results Laboratory Tests Test 06/15/19 09:23 White Blood Count 6.9 x10^3/uL (4.0-11.0) Red Blood Count 3.66 x10^6/uL (4.30-5.70) L Hemoglobin 11.8 g/dL (13.0-17.5) L Hematocrit 35.1 % (39.0-53.0) L Mean Corpuscular Volume 96 fL (79-100) Mean Corpuscular Hemoglobin 32 pg (25-35) Mean Corpuscular Hemoglobin Concent 34 g/dL (31-37) Red Cell Distribution Width 13.8 % (11.5-14.5) Platelet Count 295 x10^3/uL (140-400) Neutrophils (%) (Auto) 78 % (31-73) H Lymphocytes (%) (Auto) 8 % (24-48) L Monocytes (%) (Auto) 14 % (0-9) H Eosinophils (%) (Auto) 0 % (0-3) Basophils (%) (Auto) 0 % (0-3) Neutrophils # (Auto) 5.4 x10^3uL (1.8-7.7) Lymphocytes # (Auto) 0.6 x10^3/uL (1.0-4.8) L Monocytes # (Auto) 1.0 x10^3/uL (0.0-1.1) Eosinophils # (Auto) 0.0 x10^3/uL (0.0-0.7) Basophils # (Auto) 0.0 x10^3/uL (0.0-0.2) Sodium Level 137 mmol/L (136-145) Potassium Level 4.0 mmol/L (3.5-5.1) Chloride Level 99 mmol/L (98-107) Carbon Dioxide Level 29 mmol/L (21-32) Anion Gap 9 (6-14) Blood Urea Nitrogen 58 mg/dL (8-26) H Creatinine 1.9 mg/dL (0.7-1.3) H Estimated GFR (Cockcroft-Gault) 34.5 BUN/Creatinine Ratio 31 (6-20) H Glucose Level 234 mg/dL (70-99) H Calcium Level 9.8 mg/dL (8.5-10.1) Total Bilirubin 0.4 mg/dL (0.2-1.0) Aspartate Amino Transferase (AST) 21 U/L (15-37) Alanine Aminotransferase (ALT) 24 U/L (16-63) Alkaline Phosphatase 72 U/L (46-116) Troponin I Quantitative < 0.017 ng/mL (0-0.055) Total Protein 6.7 g/dL (6.4-8.2) Albumin 2.3 g/dL (3.4-5.0) L Albumin/Globulin Ratio 0.5 (1.0-1.7) L Lipase 32 U/L (73-393) L EKG EKG EKG shows a sinus rhythm at 82 bpm, normal axis, QTC of 452 ms, no ST elevations. There is flattening of the inferior T waves when compared with EKG of 03/31/2019 which were inverted at that time. Interpreted by me at 0930[] Radiology/Procedures Radiology/Procedures PROCEDURE: CT ABDOMEN PELVIS WO CONTRAST EXAM: CT Abdomen and Pelvis without IV contrast CLINICAL HISTORY: Nausea, vomiting. COMPARISON: none TECHNIQUE: Helical CT of the abdomen and pelvis without intravenous contrast. Axial, coronal and sagittal reformatted images were generated. PQRS compliance statement - One or more of the following individualized dose reduction techniques were utilized for this study: 1. Automated exposure control 2. Adjustment of the mA and/or kV according to patient size 3. Use of iterative reconstruction technique FINDINGS: Lack of intravenous contrast limits evaluation of solid organs, vasculature, and lymph nodes. Lower chest: Linear wedge-shaped opacities in the lower lobes and lingula likely scarring/atelectasis. Coronary artery and aortic root calcifications are seen. No pericardial effusion. Abdomen and Pelvis: Hepatic hypoattenuation likely hepatic steatosis. Gallbladder is normal. Spleen is unremarkable with a few scattered calcified granulomas. Adrenal glands are unremarkable. Calcified right interpolar renal cystic lesion is seen. Hypodense posterior right interpolar renal lesion measures fluid soft tissue density measuring 1.1 cm, stable. Additional hypodense bilateral renal lesions measure fluid density, likely cystic. No hydronephrosis. No definite renal tract calculus. Diffuse bladder wall thickening may be seen with cystitis. Large volume colonic stool content is seen throughout the colon. This is particularly prominent at the rectum, with fecal material appearing impacted in the rectosigmoid. No evidence for small or large bowel dilatation. The stomach is markedly distended with fluid. Appendix is normal. Diffuse mesenteric infiltration is seen, of uncertain clinical significance, grossly unchanged compared to prior examination. Dense atherosclerotic calcifications of the aorta are seen. Ventral abdominal hernia containing a segment of colon. Bones: Chronic/healed right iliac bone fracture. Degenerative changes of the spine are seen. IMPRESSION: 1. Large volume colonic stool content large volume stool likely impacted within the rectosigmoid. This may be seen with constipation. 2. Stomach is markedly distended with fluid. This may be a result of recent meal/ingestion although pyloric or proximal small bowel obstruction cannot be entirely excluded 3. Nonspecific mesenteric infiltration/engorgement, grossly stable to prior CT. No free or loculated fluid collection or pneumoperitoneum. 4. High density renal lesions are essentially unchanged to prior CT from 09/08/2018. This can be correlated with ultrasound or MRI if not previously performed to exclude solid lesion. 5. Diffuse bladder wall thickening may be seen with cystitis. PROCEDURE: PORTABLE CHEST 1V Indication:Cough, nausea and vomiting. TECHNIQUE:Portable AP chest X-ray COMPARISON: 03/31/2019 FINDINGS: Heart is normal in size. Lungs are clear. No pneumothorax or effusion. Calcified granulomas in the left lung base. Visualized bony thorax within normal limits. IMPRESSION: No acute pulmonary process.[] Course & Med Decision Making Course & Med Decision Making Pertinent Labs and Imaging studies reviewed. (See chart for details) ED course and medical decision making: Patient arrived, was placed in bed, and tolerated exam well. He received additional antiemetics due to feeling sick in the emergency department. He did not have any additional episodes of nausea and vomiting. IV fluids were started. He remained in good condition as he was transported to and from [facility]. Review of his labs showed that his BUN and creatinine are elevated compared with his baseline. Due to this and the emesis of the dark looking material, concern for possible GI bleed. Consultation was made with the hospitalist service for admission at [facility] and he graciously accepted. Decision to go to [facility] was due to greater GI resources available at that facility. Discussed findings and plan with patient and family who voiced understanding. All questions were answered.[] Dragon Disclaimer Dragon Disclaimer This electronic medical record was generated, in whole or in part, using a voice recognition dictation system. Departure Departure: Impression: Primary Impression: Nausea and vomiting Additional Impression: GI bleed Disposition: 05 TRANSFER OTHER Admitting Physician: Telly Solorzano Condition: IMPROVED Referrals: DIMITRI DEL CID (PCP) Problem Qualifiers Primary Impression: Nausea and vomiting Vomiting type: unspecified Vomiting Intractability: non-intractable Qualified Codes: R11.2 - Nausea with vomiting, unspecified Additional Impression: GI bleed GI bleed type/associated pathology: unspecified gastrointestinal hemorrhage type Qualified Codes: K92.2 - Gastrointestinal hemorrhage, unspecified DEL DANIELS DO Jun 15, 2019 10:37
[2019-06-15] MEDS ORDERED: PANTOPRAZOLE IV 40 MG VIAL. IVP ONE (10:45)
[2019-06-15 13:30] LABS: AMORPHOUS SEDIMENT,UR PRESENT /HPF; BACTERIA,URINE 0 /HPF (0-FEW); BILIRUBIN,URINE NEG (NEG); CLARITY,URINE HAZY; COLOR,URINE YELLOW; GLUCOSE,URINE 100 mg/dL (NEG); GRANULAR CASTS,URINE OCC /HPF; HYALINE CASTS, URINE OCC /HPF; NITRITE,URINE NEG (NEG); SQUAMOUS EPITHELIAL CELL,UR OCC /LPF; UROBILINOGEN,URINE 0.2 mg/dL (0.2 mg/dL); WBC,URINE OCC /HPF (0-4)
[2019-06-15 14:45] VITALS: BP 126/65
== END 2019-06-15 15:12 | disposition short-term general hospital (02) ==
LOC: ER 09:09
DX: K92.2 Gastrointestinal hemorrhage, unspecified (principal); R11.2 Nausea with vomiting, unspecified; E11.9 Type 2 diabetes mellitus without complications; I10 Essential (primary) hypertension; E03.9 Hypothyroidism, unspecified; G89.29 Other chronic pain; Z95.1 Presence of aortocoronary bypass graft; Z88.8 Allergy status to other drugs, medicaments and biological substances; Z88.0 Allergy status to penicillin; Z88.6 Allergy status to analgesic agent; Z91.041 Radiographic dye allergy status
CPT/HCPCS: 36415; 71045; 74176; 80053; 81001; 83690; 84484; 85025; 85610; 85730; 86850; 86900; 86901; 93005; 96361; 96374; 96375; 99285; C9113; J0780; 86870; J7030

== ENCOUNTER 2020-05-03 10:15 | Emergency (ER) | payer MEDICARE ==
[~2020-05-03] VITALS: Ht 180.3 cm; Wt 98.8 kg
[~2020-05-03 10:15] MED LIST changes: +SIMV40TA18 PO; -SIMV40TA3 PO
[2020-05-03] MEDS ORDERED: IV NORMAL SALINE 1,000ML 1,000 ML IV ONE (10:45)
[2020-05-03 11:01] LABS: BASO % 1 % (0-3); EOS % 0 % (0-3); HEMOGLOBIN 11.6 g/dL (13.0-17.5); LYMPH # 0.3 x10^3/uL (1.0-4.8); LYMPH % 13 % (24-48); MEAN CORPUSCULAR HEMOGLOBIN 32 pg (25-35); MEAN CORPUSCULAR HGB CONC 31 g/dL (31-37); MEAN CORPUSCULAR VOLUME 105 fL (79-100); MONO # 0.4 x10^3/uL (0.0-1.1); MONO % 16 % (0-9); NEUT # 1.9 x10^3uL (1.8-7.7); NEUT % 71 % (31-73); PLATELET COUNT 157 x10^3/uL (140-400); RED BLOOD COUNT 3.61 x10^6/uL (4.30-5.70); RED CELL DISTRIBUTION WIDTH 17.3 % (11.5-14.5); WHITE BLOOD COUNT 2.7 x10^3/uL (4.0-11.0)
[2020-05-03 11:08] LABS: ALBUMIN 3.1 g/dL (3.4-5.0); ALBUMIN/GLOBULIN RATIO 0.9 (1.0-1.7); CREATININE 4.5 mg/dL (0.7-1.3); GFR 12.7; POTASSIUM 4.8 mmol/L (3.5-5.1); TOTAL BILIRUBIN 0.9 mg/dL (0.2-1.0); TOTAL PROTEIN 6.4 g/dL (6.4-8.2)
[2020-05-03 11:12] LABS: C REACTIVE PROTEIN 19.1 mg/L (0-3.3)
--- NOTE | 2020-05-03 11:33 | RAD ---
EXAM: CHEST 1 VIEW History: Shortness of breath COMPARISON: 06/15/2019 TECHNIQUE: Single portable radiograph of the chest FINDINGS: Low lung volumes and technique accentuates heart size and pulmonary vascularity. Right-sided dialysis catheter is identified. Mild bibasilar lung atelectasis. Mild prominent bilateral interstitial lung markings. IMPRESSION: Mild bibasilar lung atelectasis. Mild congestive changes. Electronically signed by: Dylan Beyer MD (05/03/2020 11:30 AM) [id number]
[2020-05-03 11:53] LABS: BILIRUBIN,URINE NEG (NEG); CLARITY,URINE CLOUDY; COLOR,URINE YELLOW; GLUCOSE,URINE 250 mg/dL (NEG); NITRITE,URINE NEG (NEG); UROBILINOGEN,URINE 0.2 mg/dL (0.2 mg/dL)
[2020-05-03 11:54] LABS: AMORPHOUS SEDIMENT,UR PRESENT /HPF; BACTERIA,URINE FEW /HPF (0-FEW); SQUAMOUS EPITHELIAL CELL,UR OCC /LPF; WBC,URINE >40 /HPF (0-4)
[2020-05-03] MEDS ORDERED: INSULIN REGULAR 100 UNIT/ML 3ML VIAL. IV ONE ×3 (12:00→16:30)
--- NOTE | 2020-05-03 12:18 | EKG ---
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
--- NOTE | 2020-05-03 15:23 | PHYS DOC ---
Past History Past Medical History: Diabetes, Hypertension, Hypothyroid, Other Additional Past Medical Histor: chronic pain Past Surgical History: Coronary Bypass Surgery, Other Alcohol Use: Occasionally Drug Use: None Adult General Chief Complaint Chief Complaint: BLOOD SUGAR PROBLEM HPI HPI Patient is a 79 year old male with past medical history of end-stage renal disease, hypertension, diabetes who presents with hypoxia and hyperglycemia. According to EMS, patient was found to be hypoxic this morning with a pulse ox of 80% on room air. They did give him morphine this morning. Patient states that he has been coughing and short of breath. EMS checked his glucose because he was lethargic and the glucometer read as high. Patient states he feels very nauseous Review of Systems Review of Systems General: Denies fever, chills, sweats, fatigue Eyes: Denies drainage, blurred vision, eye redness HENT: Denies rhinorrhea, sore throat, earache Respiratory: Denies shortness of breath, wheezing. Reports cough Cardiac: Denies edema, palpitations, chest pain GI: Denies abdominal pain. Reports nausea, vomiting MSK: Denies back pain, neck pain Skin: Denies rash, jaundice Neuro: Denies headache, dizziness Psychiatric: Denies SI/HI Current Medications Current Medications Current Medications Medications (Trade) Dose Ordered Sig/Mk Start Time Stop Time Status Last Admin Dose Admin Insulin Human Regular (HumuLIN R VIAL) 5 unit 1X ONCE 05/03/20 14:00 05/03/20 14:02 DC 05/03/20 14:02 5 UNIT Sodium Chloride 1,000 ml @ 1,000 mls/hr 1X ONCE 05/03/20 10:45 05/03/20 11:44 DC 05/03/20 10:52 1,000 MLS/HR Allergies Allergies Allergies Coded Allergies Type Severity Reaction Last Updated Verified Iodinated Contrast- Oral and IV Dye Allergy Severe 03/31/19 Yes Penicillins Allergy Intermediate 09/08/18 Yes tapentadol Allergy Intermediate 04/02/19 Yes Physical Exam Physical Exam Constitutional: Well developed, well nourished, no acute distress, non-toxic appearance. [] HENT: Normocephalic, atraumatic, bilateral external ears normal, oropharynx moist, no oral exudates, nose normal. [] Eyes: PERRLA, EOMI, conjunctiva normal, no discharge. [] Neck: Normal range of motion, no tenderness, supple, no stridor. [] Cardiovascular:Heart rate regular rhythm, no murmur [] Lungs & Thorax: Bilateral breath sounds clear to auscultation [] Abdomen: Bowel sounds normal, soft, no tenderness, no masses, no pulsatile masses. [] Skin: Warm, dry, no erythema, no rash. [] Back: No tenderness, no CVA tenderness. [] Extremities: No tenderness, no cyanosis, no clubbing, ROM intact, no edema. [] Neurologic: Alert and oriented X 3, normal motor function, normal sensory functi on, no focal deficits noted. [] Psychologic: Affect normal, judgement normal, mood normal. [] Current Patient Data Vital Signs Vital Signs Date Time Temp Pulse Resp B/P (MAP) Pulse Ox O2 Delivery O2 Flow Rate FiO2 05/03/20 14:24 84 19 97/45 (62) 97 Nasal Cannula 2.0 05/03/20 10:15 98.2 Lab Results Laboratory Tests Test 05/03/20 10:22 05/03/20 11:24 05/03/20 11:55 05/03/20 12:42 White Blood Count 2.7 x10^3/uL (4.0-11.0) L Red Blood Count 3.61 x10^6/uL (4.30-5.70) L Hemoglobin 11.6 g/dL (13.0-17.5) L Hematocrit 38.0 % (39.0-53.0) L Mean Corpuscular Volume 105 fL (79-100) H Mean Corpuscular Hemoglobin 32 pg (25-35) Mean Corpuscular Hemoglobin Concent 31 g/dL (31-37) Red Cell Distribution Width 17.3 % (11.5-14.5) H Platelet Count 157 x10^3/uL (140-400) Neutrophils (%) (Auto) 71 % (31-73) Lymphocytes (%) (Auto) 13 % (24-48) L Monocytes (%) (Auto) 16 % (0-9) H Eosinophils (%) (Auto) 0 % (0-3) Basophils (%) (Auto) 1 % (0-3) Neutrophils # (Auto) 1.9 x10^3uL (1.8-7.7) Lymphocytes # (Auto) 0.3 x10^3/uL (1.0-4.8) L Monocytes # (Auto) 0.4 x10^3/uL (0.0-1.1) Eosinophils # (Auto) 0.0 x10^3/uL (0.0-0.7) Basophils # (Auto) 0.0 x10^3/uL (0.0-0.2) D-Dimer (Nely) 2.98 mg/L (0.00-0.50) H Sodium Level 134 mmol/L (136-145) L Potassium Level 4.8 mmol/L (3.5-5.1) Chloride Level 90 mmol/L (98-107) L Carbon Dioxide Level 17 mmol/L (21-32) L Anion Gap 27 (6-14) H Blood Urea Nitrogen 50 mg/dL (8-26) H Creatinine 4.5 mg/dL (0.7-1.3) H Estimated GFR (Cockcroft-Gault) 12.7 BUN/Creatinine Ratio 11 (6-20) Glucose Level 593 mg/dL (70-99) *H Calcium Level 9.0 mg/dL (8.5-10.1) Ferritin 649 ng/mL (26-388) H Total Bilirubin 0.9 mg/dL (0.2-1.0) Aspartate Amino Transferase (AST) 26 U/L (15-37) Alanine Aminotransferase (ALT) 27 U/L (16-63) Alkaline Phosphatase 86 U/L (46-116) Creatine Kinase 169 U/L (39-308) Troponin I Quantitative < 0.017 ng/mL (0-0.055) C-Reactive Protein 19.1 mg/L (0-3.3) H QN-Qss-Z-Type Natriuretic Peptide 4265 pg/mL (0-449) H Total Protein 6.4 g/dL (6.4-8.2) Albumin 3.1 g/dL (3.4-5.0) L Albumin/Globulin Ratio 0.9 (1.0-1.7) L Urine Collection Type Unknown Urine Color Yellow Urine Clarity Cloudy Urine pH 5.5 Urine Specific Condon 1.020 Urine Protein >100 mg/dl (NEG-TRACE) Urine Glucose (UA) 250 mg/dL (NEG) Urine Ketones (Stick) 15 mg/dL (NEG) Urine Blood Mod (NEG) Urine Nitrite Neg (NEG) Urine Bilirubin Neg (NEG) Urine Urobilinogen Dipstick 0.2 mg/dL (0.2 mg/dL) Urine Leukocyte Esterase Small (NEG) Urine RBC 3-5 /HPF (0-2) Urine WBC >40 /HPF (0-4) Urine Squamous Epithelial Cells Occ /LPF Urine Amorphous Sediment Present /HPF Urine Bacteria Few /HPF (0-FEW) Glucose (Fingerstick) 547 mg/dL (70-99) *H 582 mg/dL (70-99) *H Test 05/03/20 13:32 Glucose (Fingerstick) 520 mg/dL (70-99) *H EKG EKG [] Radiology/Procedures Radiology/Procedures [] Course & Med Decision Making Course & Med Decision Making Pertinent Labs and Imaging studies reviewed. (See chart for details) Patient is 71-year-old male who presents to the emergency room with hypoxia and hyperglycemia. Patient is lethargic upon my evaluation but easily arousable. He was given a small amount of fluids due to his significant hyperglycemia. Patient was then given insulin to help with his hyperglycemia. He is requiring 4 L of oxygen here in the emergency room. Chest x-ray does not show an obvious reason for hypoxia. It is possible it could be due to morphine. Given his history of cough it is also possible this could be due to coronavirus. Inflammatory markers were ordered to evaluate and risk stratify the patient. Most of his inflammatory markers are elevated which is concerning for possible coronavirus. Coronavirus swab will be done. Patient will be transferred to [facility] for further care as he will need dialysis tomorrow. Dragon Disclaimer Dragon Disclaimer This electronic medical record was generated, in whole or in part, using a voice recognition dictation system. Departure Departure: Impression: Primary Impression: Hyperglycemia Additional Impression: Respiratory failure with hypoxia Disposition: 05 TRANSFER OTHER Condition: STABLE Referrals: DIMIT[facility] DEL CID (PCP) Justification of Admission: Justification of Admission: Justification of Admission Dx: Yes Problem Qualifiers KESHIA MOORE MD May 03, 2020 15:23
[2020-05-03 16:00] VITALS: BP 117/48
[2020-05-03] MEDS ORDERED: ONDANSETRON PF 4 MG/2 ML VIAL. ONE (16:12)
[2020-05-03] MEDS ORDERED: ONDANSETRON PF 4 MG/2 ML VIAL. IVP ONE (16:15)
[2020-05-03 16:55] LABS: RED BLOOD COUNT 3.41 x10^6/uL (4.30-5.70); RED CELL DISTRIBUTION WIDTH 17.1 % (11.5-14.5); WHITE BLOOD COUNT 2.7 x10^3/uL (4.0-11.0)
[2020-05-03 17:07] LABS: CALCIUM 8.5 mg/dL (8.5-10.1); CREATININE 4.8 mg/dL (0.7-1.3); GFR 11.8
== END 2020-05-03 17:00 | disposition short-term general hospital (02) ==
LOC: ER 10:15
DX: J96.91 Respiratory failure, unspecified with hypoxia (principal); E11.65 Type 2 diabetes mellitus with hyperglycemia; E11.22 Type 2 diabetes mellitus with diabetic chronic kidney disease; I12.0 Hypertensive chronic kidney disease with stage 5 chronic kidney disease or end stage renal disease; N18.6 End stage renal disease; G89.29 Other chronic pain; Z95.1 Presence of aortocoronary bypass graft; Z20.828 Contact with and (suspected) exposure to other viral communicable diseases
CPT/HCPCS: 36415; 71045; 80048; 80053; 81001; 82550; 82728; 82947; 83880; 84484; 85025; 85027; 85379; 86140; 87086; 93005; 96361; 96374; 96376; 99285; J1815; J7030; P9612; U0003